=== PATIENT | male | born 1945 | race Caucasian/White ===

== ENCOUNTER → 2021-04-15 11:43 | Outpatient (BNVA) | payer MEDICARE, SELFPAY | PROVIDERS: Visit Provider Urology | DX: C61 Malignant neoplasm of prostate (principal); N40.1 Benign prostatic hyperplasia with lower urinary tract symptoms; N13.8 Other obstructive and reflux uropathy; R35.1 Nocturia; R39.12 Poor urinary stream; R97.20 Elevated prostate specific antigen [PSA]; Z85.830 Personal history of malignant neoplasm of bone; Z94.81 Bone marrow transplant status | CPT/HCPCS: 51798; 99212 ==

== ENCOUNTER 2021-06-07 09:04 | Day surgery (SDC) | payer MEDICARE, SELFPAY ==
--- NOTE | 2021-06-06 14:34 | P.CONAN_ITS ---
Documented by User: Soco Miller NP 06/06/21 14:43 HPI - Anesthesia Eval Consult details Narrative: 75yo M for ?Upper Endoscopy and Colonoscopy PMFSH Active Problems Active Problems: All Active Problems (Updated 04/15/21 @ 12:35 by Jeancarlos Garcia MD) BPH w urinary obs/LUTS (Acute) Prostate cancer (Acute) Past Medical History Medical History BPH w urinary obs/LUTS Graves disease HLD (hyperlipidemia) Multiple myeloma Nocturia Osteopenia Paroxysmal atrial fibrillation Prostate cancer Family History Family History Mother CAD (coronary artery disease) Father Prostate cancer Surgical History Surgical History H/O neck surgery H/O shoulder surgery Hx of spinal surgery Social History Social History Alcohol intake: current Alcohol intake frequency: holidays/special occasions only Alcohol type: wine Patient Tobacco Use Status: Never used Tobacco Use of substances other than those prescribed or required for medical reasons: No Are you DNR?: No Advance Directives: No Advance Directives Information Provided: No Advance Directives on File: No Meds Allergies Allergy/AdvReac Type Severity Reaction Status Date / Time No Known Allergies Allergy Verified 04/15/21 12:01 Home Medications Medication Instructions Recorded Confirmed Last Taken Type cholecalciferol (vitamin D3) 25 25 mcg PO DAILY 04/15/21 Unknown History mcg (1,000 unit) tablet (Vitamin D3) levothyroxine 150 mcg tablet 150 mcg PO DAILY 04/15/21 Unknown History (Synthroid) lifitegrast 5 % eye drops in a drp OPHTHALMIC (EYE) BID ea 04/15/21 Unknown History dropperette (Xiidra) Exam Exam Date and Time: June 06, 2021 1434 Assessment and Plan Assessment Anesthesia Assessment: Chart Reviewed Documented by User: Celeste Espino MD 06/07/21 09:32 [facility] Past Medical History Medical History BPH w urinary obs/LUTS Graves disease HLD (hyperlipidemia) Multiple myeloma Nocturia Osteopenia Paroxysmal atrial fibrillation Prostate cancer Family History Family History Mother CAD (coronary artery disease) Father Prostate cancer Surgical History Surgical History H/O neck surgery H/O shoulder surgery Hx of spinal surgery History of Problems with Anesthesia: No Social History Social History Alcohol intake: current Alcohol intake frequency: holidays/special occasions only Alcohol type: wine Patient Tobacco Use Status: Never used Tobacco Use of substances other than those prescribed or required for medical reasons: No Are you DNR?: No Advance Directives: No Advance Directives Information Provided: No Advance Directives on File: No Meds Allergies Allergy/AdvReac Type Severity Reaction Status Date / Time No Known Allergies Allergy Verified 04/15/21 12:01 Home Medications Medication Instructions Recorded Confirmed Last Taken Type cholecalciferol (vitamin D3) 25 25 mcg PO DAILY 04/15/21 Unknown History mcg (1,000 unit) tablet (Vitamin D3) levothyroxine 150 mcg tablet 150 mcg PO DAILY 04/15/21 Unknown History (Synthroid) lifitegrast 5 % eye drops in a drp OPHTHALMIC (EYE) BID ea 04/15/21 Unknown History dropperette (Xiidra) Exam Airway Mallampati Class: II TM Dist: >3cm Neck ROM: Full Loose/Missing/Broken Teeth: No Heart: RRR Lungs: CTA Assessment and Plan Assessment Anesthesia Assessment: Anesthesia Plan Discussed Final Anesthetic Review History of Problems with Anesthesia: No NPO: Yes ASA Class: III Final Preanesthetic Review: Meds/Allgs Chart Reviewed, Consent Obtained/Reviewed and Anes Risks/Benef Reviewed Patient Risk: Intermediate Procedure Risk: Intermediate Anesthetic Plan Anesthetic Plan: MAC: Disposition: Standard PACU
--- NOTE | 2021-06-07 08:39 | MHC.SHP ---
Pre-Procedural Eval Section A Date of Service: 06/07/21 The patient is an INPATIENT: No Changes since office visit: No Cold of Flu in the past 2 weeks, No New Medical Problems, No Changes in Medication and No Patient answered all questions The History & Physical has been completed within 30 days and I have reviewed it.: Yes Section B Chief Complaint: dysphasia,diarrhea Allergies: Allergies Allergy/AdvReac Type Severity Reaction Status Date / Time No Known Allergies Allergy Verified 04/15/21 12:01 Plan I have reviewed the history and physical and performed a pertinent physical examination on my patient. No changes have occurred unless specified.
[2021-06-07 09:13] VITALS: BMI 23.1
[2021-06-07 09:23] VITALS: BP 128/69; PULSE 65; RESP 16; TEMP 36.2; O2SAT 98
[2021-06-07] MEDS: Lactated Ringers 1,000 ML 100 ML IVCONT (09:36)
[2021-06-07 10:13] VITALS: BP 93/68; PULSE 60; RESP 16; TEMP 36.6; O2SAT 99
--- NOTE | 2021-06-07 10:17 | P.BOP_ITS ---
Brief Operative Note Date of Service: 06/07/21 Pre-op diagnosis: dysphagia, diarrhea Post-op diagnosis: same (gastritis, duodenitis, diverticulosis, cecal avm) Procedure: EGD/COLON Surgeon: Sebastian Bojorquez Anesthesia: MAC Was an Clod Puller used for this Procedure?: No Estimated blood loss (mL): 2 Pathology: other (bxs antrum,egj, ti, sigmoid) Condition: stable Disposition: PACU
[2021-06-07 10:27] VITALS: BP 113/72; PULSE 63; RESP 16; TEMP 36.1; O2SAT 100
--- NOTE | 2021-06-07 10:48 | OP_ITS ---
SURGEON: Sebastian Bojorquez MD INDICATIONS: 1. Dysphagia. 2. Diarrhea and colorectal cancer screening. PREOPERATIVE DIAGNOSIS: POSTOPERATIVE DIAGNOSIS: PROCEDURE PERFORMED: 1. Upper endoscopy with biopsy. 2. Colonoscopy to the terminal ileum with biopsy. ESTIMATED BLOOD LOSS: COMPLICATIONS: ANESTHESIA: Medications, monitored anesthesia care. ASSISTANTS: SPECIMENS: DESCRIPTION OF PROCEDURE: History and physical performed. The risks and benefits of the procedure were explained to the patient, and informed consent was obtained. The patient was placed in left lateral decubitus position. The Olympus video gastroscope was introduced into the esophagus, stomach, and duodenum. Examination was performed. The scope was removed. He was repositioned for colonoscopy. A digital rectal exam was performed and was found to be normal. The Olympus pediatric video colonoscope was introduced into the rectum and advanced to the cecum without difficulty. The cecum was identified by transillumination, palpation, and identification of ileocecal valve. Examination was performed, and the scope was removed. He tolerated both procedures well and was taken to recovery area in stable condition. FINDINGS: UPPER ENDOSCOPY: Esophagus: The esophagus was normal. There was a small sliding hiatal hernia. There was no esophagitis. Biopsies were obtained from the EG junction. Stomach: The stomach showed no evidence of masses or ulcers. There were some erosions in the distal antrum in the pre-pyloric area. Antral biopsies were obtained to evaluate for H pylori. Duodenum: There was some mild duodenitis involving the bulb. COLONOSCOPY: The terminal ileum was examined and appeared normal. This was biopsied. The visualized colonic mucosa was within normal limits without evidence of masses or ulcers. No polyps were identified. There was mild sigmoid diverticulosis. In the cecum, was a 5 mm nonbleeding AVM that was not treated. Retroflexed examination showed moderate-sized internal hemorrhoids. The quality of the prep was good with some stool coating the mucosa, which limited the sensitivity examination, mainly in the sigmoid. This was washed and suctioned, however, the exam was determined to be adequate. IMPRESSION: 1. Gastritis. 2. Duodenitis. 3. Diverticulosis. 4. Cecal nonbleeding AVM. RECOMMENDATION: Follow up the biopsy results. Routine screening colonoscopy not recommended based on age. MD QUINCY Deluna/CONSUELOL / [id number] JAK
== END 2021-06-07 11:08 | disposition home or self-care (01) ==
PROVIDERS: PCP Internal Medicine; Visit Provider Internal Medicine Gastroenterology
PROC: (CPT 45380; principal; 2021-06-07 10:00)
DX: Z12.11 Encounter for screening for malignant neoplasm of colon (principal); K57.30 Diverticulosis of large intestine without perforation or abscess without bleeding; K64.8 Other hemorrhoids; K55.20 Angiodysplasia of colon without hemorrhage; K58.0 Irritable bowel syndrome with diarrhea; N40.0 Benign prostatic hyperplasia without lower urinary tract symptoms; R13.19 Other dysphagia; K29.60 Other gastritis without bleeding; K29.80 Duodenitis without bleeding; K44.9 Diaphragmatic hernia without obstruction or gangrene; C90.00 Multiple myeloma not having achieved remission; E78.00 Pure hypercholesterolemia, unspecified; M85.80 Other specified disorders of bone density and structure, unspecified site; E05.00 Thyrotoxicosis with diffuse goiter without thyrotoxic crisis or storm; I48.0 Paroxysmal atrial fibrillation; Z79.899 Other long term (current) drug therapy
CPT/HCPCS: 45380; 43239; 88305; 88342

== ENCOUNTER → 2022-01-13 11:12 | Outpatient (BNVA) | payer MEDICARE, SELFPAY | PROVIDERS: PCP Internal Medicine; Visit Provider Urology | DX: N40.1 Benign prostatic hyperplasia with lower urinary tract symptoms (principal); N13.8 Other obstructive and reflux uropathy; C61 Malignant neoplasm of prostate | CPT/HCPCS: 51798; 99212 ==

== ENCOUNTER → 2022-07-07 11:13 | Outpatient (BNVA) | payer MEDICARE, SELFPAY | PROVIDERS: PCP Internal Medicine; Visit Provider Urology | DX: N40.1 Benign prostatic hyperplasia with lower urinary tract symptoms (principal); N13.8 Other obstructive and reflux uropathy; C61 Malignant neoplasm of prostate | CPT/HCPCS: 51798; 99212 ==

== ENCOUNTER → 2022-10-31 14:24 | Outpatient (BNVA) | payer MEDICARE, SELFPAY | PROVIDERS: PCP Internal Medicine; Visit Provider Urology | DX: C61 Malignant neoplasm of prostate (principal); N40.1 Benign prostatic hyperplasia with lower urinary tract symptoms; N13.8 Other obstructive and reflux uropathy; R35.1 Nocturia; R39.12 Poor urinary stream; Z85.79 Personal history of other malignant neoplasms of lymphoid, hematopoietic and related tissues; Z94.81 Bone marrow transplant status | CPT/HCPCS: 99212 ==

== ENCOUNTER 2023-05-08 09:42 | Outpatient (AMB) | payer MEDICARE, SELFPAY ==
--- NOTE | 2023-05-08 09:46 | MHC.OFFVIS ---
Intake Intake Visit Reasons: follow up/PSA(set) Intake Note: Patient is Present for Follow Up PSA Urology Medication: None Antibiotic Allergies:None Blood Thinners:None PVR: 0ml Allergies No Known Allergies Allergy (Verified 05/08/23 09:50) HPI HPI Comments History of Present Illness Details Leandro is a pleasant male. He is a patient of . 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 PFSH Medical History Paroxysmal atrial fibrillation Graves disease Osteopenia Multiple myeloma HLD (hyperlipidemia) BPH w urinary obs/LUTS Prostate cancer Nocturia Surgical History H/O neck surgery Hx of spinal surgery H/O shoulder surgery Family History Mother CAD (coronary artery disease) Father Prostate cancer Alcohol intake: current Alcohol intake frequency: holidays/special occasions only Alcohol type: wine Patient Tobacco Use Status: Never used Tobacco Review of Systems Const Denies chills and Denies fever(s) Card Reports no additional complaints and Denies syncope Resp Denies cough GI Denies abdominal pain and Denies heartburn Reports as per HPI and Denies change in libido Neuro Denies syncope Psych Denies change in libido Endo Denies change in libido Physical Exam Const General: cooperative, healthy appearing, comfortable and no acute distress Orientation/consciousness: patient oriented x3 HEENT Face and sinus: Yes normal facial exam Mouth: moist mucous membranes Neck Neck: Yes normal visual inspection, Yes full ROM and Yes trachea midline Chest Chest palpation & inspection: normal inspection of the chest Resp Effort & Inspection: normal respiratory effort, able to speak in complete sentences and no respiratory distress GI Inspection: Yes normal to inspection Back/Spine/Pelvis Cervical Spine: normal cervical lordosis Thoracic/Lumbar Spine: thoracic and lumbar spine normal to inspection Skin General skin exam: no rashes or lesions noted Neuro General: patient oriented x3, gait normal, tone normal and moves all extremities Extrem General: Yes normal to inspection and Yes capillary refill normal Office Procedures Post Void Residual Post Residual Void Post Void Residual (PVR): 0 [id number] Void Residual by ultrasound Results AMB Urinalysis, Automated UA Leukoctes 0 Rahul/uL Last Edit by Ale Lombardi [facility] on 05/08/23 10:02 UA Nitrite Negative Last Edit by Ale Lombardi [facility] on 05/08/23 10:02 UA Urobilinogen 0.2 mg/dL Last Edit by Ale Lombardi [facility] on 05/08/23 10:02 UA Protein 0 mg/dL Last Edit by Ale Lombardi [facility] on 05/08/23 10:02 UA pH 5.0 Last Edit by Ale Lombardi [facility] on 05/08/23 10:02 UA Blood 0 Anthony/uL Last Edit by Ale Lombardi [facility] on 05/08/23 10:02 UA Specific [place] 1.015 Last Edit by Ale Lombardi [facility] on 05/08/23 10:02 UA Ketone Negative Last Edit by Ale Lombardi [facility] on 05/08/23 10:02 UA Bilirubin 0 mg/dL Last Edit by Ale Lombardi [facility] on 05/08/23 10:02 UA Glucose 0 mg/dL Last Edit by Ale Lombardi [facility] on 05/08/23 10:02 Assessment & Plan Assessment & Plan (1) Prostate cancer: Code(s): C61 - Malignant neoplasm of prostate (2) BPH w urinary obs/LUTS: Code(s): N40.1 - Benign prostatic hyperplasia with lower urinary tract symptoms; N13.8 - Other obstructive and reflux uropathy Plan Six month follow-up PSA Orders: Orders AMB Urinalysis Automated Today N13.8 - Other obstructive and reflux uropathy, N40.1 - Benign prostatic hyperplasia with lower urinary tract symptoms, Z13.9 - Encounter for screening, unspecified AMB Post Void Residual by ultrasound Today N13.8 - Other obstructive and reflux uropathy, N40.1 - Benign prostatic hyperplasia with lower urinary tract symptoms PSA,Total (Free>4and<10) 6 Months C61 - Malignant neoplasm of prostate Patient Instructions: Imaging studies, laboratory and physical exam results were discussed and reviewed in detail. No major barriers to patient understanding were identified. An opportunity to ask questions regarding the treatment plan was provided. All questions were answered. The patient expressed understanding and agreement with the above treatment plan. The patient is aware they should contact our office by phone for worsening of their current condition or the appearance of new urologic symptoms. Compliance is encouraged with any medications and followup testing that is ordered. It is a privilege to participate in the urologic care of your patient. If you have any questions or concerns regarding treatment for the above conditions, or other urologic issues, please do not hesitate to contact me. The office telephone contact is [phone]. This note is constructed using voice recognition software. While every effort has been made to ensure accuracy tile layer errors may have been included. Yours sincerely, Dr Jeancarlos Garcia MD, [facility] - Urology Providers of Expert, Compassionate Care for the Genitourinary System Coding Level of Care Code Est Pt Level 3 (36864) Diagnoses Prostate cancer C61 BPH w urinary obs/LUTS N40.1; N13.8 CPT Codes Post Residual Void - PVR CPT Code: 35626-Sgoa Void Residual by ultrasound ([id number])
== END 2023-05-08 10:16 | disposition home or self-care (01) ==
PROVIDERS: Visit Provider Urology
DX: C61 Malignant neoplasm of prostate (principal); N40.1 Benign prostatic hyperplasia with lower urinary tract symptoms; N13.8 Other obstructive and reflux uropathy; Z13.9 Encounter for screening, unspecified
CPT/HCPCS: 99213

== ENCOUNTER → 2023-05-08 09:42 | Outpatient (BNVA) | payer MEDICARE, SELFPAY | PROVIDERS: Visit Provider Urology | DX: C61 Malignant neoplasm of prostate (principal); N40.1 Benign prostatic hyperplasia with lower urinary tract symptoms; N13.8 Other obstructive and reflux uropathy | CPT/HCPCS: 51798; 81003; 99212 ==

== ENCOUNTER 2023-11-07 09:46 | Outpatient (AMB) | payer MEDICARE, SELFPAY ==
--- NOTE | 2023-11-07 09:48 | A.OFFVIS_ITS ---
Intake Visit Reasons: 6m/PSA(set) Intake Note: Patient is Present for Follow Up PSA Urology Medication: Tamsulosin Antibiotic Allergies:None Blood Thinners:None PVR: 0ml [employer] Required: No Accompanied by: Self / Same As Patient Allergies No Known Allergies Allergy (Verified 11/07/23 09:49) HPI Comments Details: Leandro is a pleasant male. He is a patient of . 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 He did ask about tadalafil JONELLE 2+ prostate soft 2 month follow-up tele med check Prostate cancer low-grade [address] Morin Initial PSA 3.5 Biopsy at diagnosis 2010 1 core of 12 5% [place] 3 + 3 Repeat biopsy 2013 BPH no evidence of cancer Did not tolerate finasteride Followed with surveillance PSA - 04/07 3.7, 01/06 3.8, 10/08 5.0, 05/10 4.3, 10/09 4.1 24% Urine normal Imaging - 10/08 MRI 0.7 cc left anterior peripheral lesion - PI-RADS 4 on diffusion, 65 cc volume - subclinical disease Lower urinary tract symptoms Longstanding Had been responsive to 0.4 mg tamsulosin Noticed increasing nocturia and weakness of stream Continues with this 0.8 mg tamsulosin May benefit from GreenLight laser procedure 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 Medical History Paroxysmal atrial fibrillation Graves disease Osteopenia Multiple myeloma HLD (hyperlipidemia) BPH w urinary obs/LUTS Prostate cancer Nocturia Surgical History H/O neck surgery Hx of spinal surgery H/O shoulder surgery Family History Mother CAD (coronary artery disease) Father Prostate cancer Social History Alcohol intake: current Alcohol intake frequency: holidays/special occasions only Alcohol type: wine Patient Tobacco Use Status: Never used Tobacco Review of Systems Const Denies chills and Denies fever(s) Card Reports no additional complaints and Denies syncope Resp Denies cough GI Denies abdominal pain and Denies heartburn Reports as per HPI and Denies change in libido Neuro Denies syncope Psych Denies change in libido Endo Denies change in libido Physical Exam Const General: cooperative, healthy appearing, comfortable and no acute distress Orientation/consciousness: patient oriented x3 HEENT Face and sinus: Yes normal facial exam Mouth: moist mucous membranes Neck Neck: Yes normal visual inspection, Yes full ROM and Yes trachea midline Chest Chest palpation & inspection: normal inspection of the chest Resp Effort & Inspection: normal respiratory effort, able to speak in complete sentences and no respiratory distress GI Inspection: Yes normal to inspection Rectal Exam - Male: Yes normal sphincter tone and Yes prostate normal Male General Exam: Yes normal external exam Penis: normal penis and circumcised Meatus: meatus normal Scrotum: scrotum normal Testes: Testes normal Back/Spine/Pelvis Cervical Spine: normal cervical lordosis Thoracic/Lumbar Spine: thoracic and lumbar spine normal to inspection Skin General skin exam: no rashes or lesions noted Neuro General: patient oriented x3, gait normal, tone normal and moves all extremities Extrem General: Yes normal to inspection and Yes capillary refill normal Assessment & Plan Assessment & Plan (1) Prostate cancer: Code(s): C61 - Malignant neoplasm of prostate Category: Medical (2) BPH w urinary obs/LUTS: Code(s): N40.1 - Benign prostatic hyperplasia with lower urinary tract symptoms; N13.8 - Other obstructive and reflux uropathy Category: Medical (3) Weak urinary stream: Code(s): R39.12 - Poor urinary stream Category: Medical (4) Nocturia more than twice per night: Code(s): R35.1 - Nocturia Category: Medical Plan Trial alfuzosin Medications: New alfuzosin ER Take before bedtime 10 mg PO BEDTIME 30 tabs 1RF 30 days N13.8 - Other obstructive and reflux uropathy, N40.1 - Benign prostatic hyperplasia with lower urinary tract symptoms, R33.9 - Retention of urine, unspecified Patient Instructions: Imaging studies, laboratory and physical exam results were discussed and reviewed in detail. No major barriers to patient understanding were identified. An opportunity to ask questions regarding the treatment plan was provided. All questions were answered. The patient expressed understanding and agreement with the above treatment plan. The patient is aware they should contact our office by phone for worsening of their current condition or the appearance of new urologic symptoms. Compliance is encouraged with any medications and followup testing that is ordered. It is a privilege to participate in the urologic care of your patient. If you have any questions or concerns regarding treatment for the above conditions, or other urologic issues, please do not hesitate to contact me. The office telephone contact is [phone]. This note is constructed using voice recognition software. While every effort has been made to ensure accuracy pelt shearer errors may have been included. Yours sincerely, Dr Jeancarlos Garcia MD, [facility] - Urology Providers of Expert, Compassionate Care for the Genitourinary System Coding Level of Care Code Est Pt Level 3 (26096) Diagnoses Prostate cancer C61 BPH w urinary obs/LUTS N40.1; N13.8 Weak urinary stream R39.12 Nocturia more than twice per night R35.1
== END 2023-11-07 10:08 | disposition home or self-care (01) ==
PROVIDERS: PCP Internal Medicine; Visit Provider Urology
DX: C61 Malignant neoplasm of prostate (principal); N40.1 Benign prostatic hyperplasia with lower urinary tract symptoms; N13.8 Other obstructive and reflux uropathy; R39.12 Poor urinary stream; R35.1 Nocturia
CPT/HCPCS: 99213

== ENCOUNTER → 2023-11-07 09:46 | Outpatient (BNVA) | payer MEDICARE, SELFPAY | PROVIDERS: PCP Internal Medicine; Visit Provider Urology | DX: C61 Malignant neoplasm of prostate (principal); N40.1 Benign prostatic hyperplasia with lower urinary tract symptoms; N13.8 Other obstructive and reflux uropathy; R39.12 Poor urinary stream; R35.1 Nocturia | CPT/HCPCS: 99212 ==

== ENCOUNTER 2024-01-08 09:45 | Outpatient (AMB) | payer MEDICARE, SELFPAY ==
--- NOTE | 2024-01-08 09:47 | A.OFFVIS_ITS ---
Intake Visit Reasons: 2M Med Review(Alfuzosin) Intake Note: Patient is Present for Telephone Follow Up For Medication Review Urology Med:Alfuzosin Antibiotic Allergy: None Blood Thinner: None Patient has started trial of Alfuzosin. Has been on medication for 30 days , does need a refill. Patient states that since he started medication he has been feeling really weak and tired. He is not sure if this is due to the Alfuzosin but started when he started medication. Patient would like to review symptoms with Dr Garcia before continuing medication Business Team Leader Required: No Allergies No Known Allergies Allergy (Verified 01/08/24 09:57) HPI Comments Details: Leandro is a pleasant male. He is a patient of . 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 PFSH Medical History Paroxysmal atrial fibrillation Graves disease Osteopenia Multiple myeloma HLD (hyperlipidemia) BPH w urinary obs/LUTS Prostate cancer Nocturia Surgical History H/O neck surgery Hx of spinal surgery H/O shoulder surgery Family History Mother CAD (coronary artery disease) Father Prostate cancer Social History Alcohol intake: current Alcohol intake frequency: holidays/special occasions only Alcohol type: wine Patient Tobacco Use Status: Never used Tobacco Review of Systems Const All systems reviewed & are unremarkable except as noted in HPI and below Reports no additional complaints Resp Reports no additional complaints GI Reports no additional complaints Reports as per HPI Musc Reports no additional complaints Physical Exam Telemedicine evaluation Appropriate responses Regular breathing rate and rhythm HEENT Head: Yes normal to inspection Ears: hearing grossly normal bilaterally Eyes General: appearance normal, both eyes and all related structures Neck Neck: Yes normal visual inspection Chest Chest palpation & inspection: normal inspection of the chest Resp Effort & Inspection: normal respiratory effort and able to speak in complete sentences Telehealth Telehealth Location of provider rendering services: practice address Location of patient: address on file Patient Identification confirmed using: Name, : Yes Telehealth method: voice only Patient verbally consented to treatment: Yes Patient verbally consented to billing insurance company: Yes Patient informed of any privacy concerns related to visit: Yes Assessment & Plan Assessment & Plan (1) Prostate cancer: Code(s): C61 - Malignant neoplasm of prostate Category: Medical (2) Weak urinary stream: Code(s): R39.12 - Poor urinary stream Category: Medical (3) Nocturia more than twice per night: Code(s): R35.1 - Nocturia Category: Medical Plan Will continue alfuzosin Orders: Orders Prostate Specific Antigen 6 Months C61 - Malignant neoplasm of prostate Medications: Changed From alfuzosin ER Take before bedtime 10 mg PO BEDTIME 30 days 30 tabs 1RF N13.8 - Other obstructive and reflux uropathy, N40.1 - Benign prostatic hyperplasia with lower urinary tract symptoms, R33.9 - Retention of urine, unspecified To alfuzosin ER Take before bedtime 10 mg PO BEDTIME 90 days 90 tabs 1RF N13.8 - Other obstructive and reflux uropathy, N40.1 - Benign prostatic hyperplasia with lower urinary tract symptoms, R33.9 - Retention of urine, unspecified Patient Instructions: Imaging studies, laboratory and physical exam results were discussed and reviewed in detail. No major barriers to patient understanding were identified. An opportunity to ask questions regarding the treatment plan was provided. All questions were answered. The patient expressed understanding and agreement with the above treatment plan. The patient is aware they should contact our office by phone for worsening of their current condition or the appearance of new urologic symptoms. Compliance is encouraged with any medications and followup testing that is ordered. It is a privilege to participate in the urologic care of your patient. If you have any questions or concerns regarding treatment for the above conditions, or other urologic issues, please do not hesitate to contact me. The office teleph one contact is [phone]. This note is constructed using voice recognition software. While every effort has been made to ensure accuracy pullboat engineer errors may have been included. Yours sincerely, Dr Jeancarlos Garcia MD, [facility] - Urology Providers of Expert, Compassionate Care for the Genitourinary System Coding Level of Care Code Tele Est Pt Level 3 (24879) Diagnoses Prostate cancer C61 Weak urinary stream R39.12 Nocturia more than twice per night R35.1
== END 2024-01-08 10:11 | disposition home or self-care (01) ==
LOC: HO.HUSH 09:45
PROVIDERS: PCP Internal Medicine; Visit Provider Urology
DX: C61 Malignant neoplasm of prostate (principal); R39.12 Poor urinary stream; R35.1 Nocturia
CPT/HCPCS: 99442

== ENCOUNTER → 2024-01-08 09:45 | Outpatient (BNVA) | payer MEDICARE, SELFPAY | PROVIDERS: PCP Internal Medicine; Visit Provider Urology ==

== ENCOUNTER 2024-07-10 11:40 | Outpatient (AMB) | payer MEDICARE, SELFPAY ==
--- NOTE | 2024-07-10 11:42 | A.OFFVIS_ITS ---
Intake Visit Reasons: 6m/PSA(set)Elevated Intake Note: Patient is present for 6M/PSA Urology Medication:ALFUZOSIN Antibiotic Allergy:NONE Blood Thinner:NONE Prep Room Supervisor Required: No Allergies No Known Allergies Allergy (Verified 07/10/24 11:43) HPI Comments Details: Leandro is a pleasant male. He is a patient of . He seen for the following urologic conditions - lower urinary tract symptoms - prostate cancer Six-month follow-up Has been on alfuzosin Feeling run down Has not been recovering from myeloma infusions each month as well as he did in the past PSA 5.2. Known large prostate. Might try dutasteride. Repeat PSA in 4 months JONELLE 2+ prostate soft Prostate cancer low-grade [address] Morin Initial PSA 3.5 Biopsy at diagnosis 2010 1 core of 12 - 5% [place] 3 + 3 Repeat biopsy 2013 BPH no evidence of cancer Did not tolerate finasteride Followed with surveillance PSA - 04/07 3.7, 01/06 3.8, 10/08 5.0, 05/10 4.3, 10/09 4.1 24%, 07/12 5.2 Urine normal Imaging - 10/08 MRI 0.7 cc left anterior peripheral lesion - PI-RADS 4 on diffusion, 65 cc volume - subclinical disease Lower urinary tract symptoms Longstanding Had been responsive to 0.4 mg tamsulosin Noticed increasing nocturia and weakness of stream Continues with this 0.8 mg tamsulosin May benefit from GreenLight laser procedure 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 PFSH Medical History Paroxysmal atrial fibrillation Graves disease Osteopenia Multiple myeloma HLD (hyperlipidemia) BPH w urinary obs/LUTS Prostate cancer Nocturia Surgical History H/O neck surgery Hx of spinal surgery H/O shoulder surgery Family History Mother CAD (coronary artery disease) Father Prostate cancer Social History Alcohol intake: current Alcohol intake frequency: holidays/special occasions only Alcohol type: wine Patient Tobacco Use Status: Never used Tobacco Review of Systems Const Denies chills and Denies fever(s) Card Reports no additional complaints and Denies syncope Resp Denies cough GI Denies abdominal pain and Denies heartburn Reports as per HPI and Denies change in libido Neuro Denies syncope Psych Denies change in libido Endo Denies change in libido Physical Exam Const General: cooperative, healthy appearing, comfortable and no acute distress Orientation/consciousness: patient oriented x3 HEENT Face and sinus: Yes normal facial exam Mouth: moist mucous membranes Neck Neck: Yes normal visual inspection, Yes full ROM and Yes trachea midline Chest Chest palpation & inspection: normal inspection of the chest Resp Effort & Inspection: normal respiratory effort, able to speak in complete sentences and no respiratory distress GI Inspection: Yes normal to inspection Back/Spine/Pelvis Cervical Spine: normal cervical lordosis Thoracic/Lumbar Spine: thoracic and lumbar spine normal to inspection Skin General skin exam: no rashes or lesions noted Neuro General: patient oriented x3, gait normal, tone normal and moves all extremities Extrem General: Yes normal to inspection and Yes capillary refill normal Assessment & Plan Assessment & Plan (1) Nocturia more than twice per night: Code(s): R35.1 - Nocturia Category: Medical (2) Prostate cancer: Code(s): C61 - Malignant neoplasm of prostate Category: Medical Plan Four month follow-up Orders: Orders AMB Urinalysis Automated Today Z13.9 - Encounter for screening, unspecified PSA,Total (Free>4and<10) 4 Months C61 - Malignant neoplasm of prostate Patient Instructions: Imaging studies, laboratory and physical exam results were discussed and reviewed in detail. No major barriers to patient understanding were identified. An opportunity to ask questions regarding the treatment plan was provided. All questions were answered. The patient expressed understanding and agreement with the above treatment plan. The patient is aware they should contact our office by phone for worsening of their current condition or the appearance of new urologic symptoms. Compliance is encouraged with any medications and followup testing that is ordered. It is a privilege to participate in the urologic care of your patient. If you have any questions or concerns regarding treatment for the above conditions, or other urologic issues, please do not hesitate to contact me. The office telephone contact is [phone]. This note is constructed using voice recognition software. While every effort has been made to ensure accuracy seed pelleter errors may have been included. Yours sincerely, Dr Jeancarlos Garcia MD, [facility] - Urology Providers of Expert, Compassionate Care for the Genitourinary System Coding Level of Care Code Est Pt Level 3 (71015) Diagnoses Nocturia more than twice per night R35.1 Prostate cancer C61
--- OUTSIDE RECORDS SUMMARY | 2024-07-10 14:06 | XMS_ITS | Continuity of Care Document ---
Author Organization [facility] [place] Address [address] [place] [address]- Care Team Providers Care Saw Man Name Role Phone Peggy Eastman MD Primary Care Physician Encounter [facility] Date(s): 06/09/24 - 07/09/24 [facility] [place] [address], [place] [address] Encounter Type: Triage Allergies, Adverse Reactions, Alerts No Known Allergies Immunizations Given and Recorded Vaccine Date Status Refusal Reason tetanus/diphtheria/pertussis, acel(Tdap) 12/18/16 Given Measles/Mumps/Rubella Virus Vaccine 01/12/12 Given haemophilus b conjugate (PRP-T) vaccine 01/12/12 G iven diphtheria/tetanus/pertussis, acel(DTaP) 01/12/12 Given Medications acetaminophen 325 mg oral tablet 650 mg, 2, tablet, By Mouth, 4 times a day, PRN, # 16 tablet, Refills 0, Tot. Refills 0, Maintenance, as needed for pain, 12/24/20 8:31:00 PM EDT, Route to Pharmacy Electronically, [facility]/pharmacy #[id number], Partial fill upon patient request if the prescription is for a schedule II opioid drug., 174, cm, 12/24/20 19:42:00 EDT, Height, 72, kg, 12/24/20 19:42:00 EDT, Dry Weight Start Date: 12/24/20 Status: Ordered Quantity: 16.0 Unit: tablet Repeat number: 1 Jessica 24 Hour Allergy = 180 mg, By Mouth, Daily, 0 Refills, Maintenance, 8/8/14 9:31:04 AM EDT Start Date: 01/23/14 Status: Ordered Repeat number: 1 atorvastatin 10 mg oral tablet 1 tablet = 10 mg, By Mouth, Daily, # 30 tablet, 0 Refills, Maintenance, 10/04/21 2:06:00 PM EDT, Partial fill upon patient request if the prescription is for a schedule II opioid drug. Start Date: 10/04/21 Status: Ordered Quantity: 30.0 Unit: tablet Repeat number: 1 CoQ10 By Mouth, Daily, 0 Refills, Maintenance, 11/04/21 9:32:00 AM EDT, Partial fill upon patient request if the prescription is for a schedule II opioid drug. Start Date: 11/04/21 Status: Ordered Repeat number: 1 Darzalex 20 mg/mL intravenous solution = 1,120 mg, IV Infusion, 0 Refills, Maintenance, 10/04/21 2:08:00 PM EDT, Partial fill upon patient request if the prescription is for a schedule II opioid drug. Start Date: 10/04/21 Status: Ordered Repeat number: 1 dexamethasone 4 mg oral tablet See Instructions, 5 tabs po weekly, # 60 tablet, 4 Refills, Maintenance, 08/22/19 11:21:00 PM EST, Tablet, [facility]/pharmacy #[id number], 177, cm, 08/01/19 8:52:00 EST, Height, 71.8, kg, 08/01/19 8:52:00 EST, DryWeight Start Date: 08/22/19 Status: Ordered Quantity: 60.0 Unit: tablet Repeat number: 5 sulfamethoxazole-trimethoprim 800 mg-160 mg oral tablet See Instructions, TAKE 1 TABLET BY MOUTH EVERY SUNDAY, SUNDAY AND SUNDAY, # 39 tablet, 4 Refills, Maintenance, 02/12/23 10:23:00 AM EDT, [facility]/pharmacy #[id number], 90, TAKE 1 TABLET BY MOUTH EVERY SUNDAY,SUNDAY AND SUNDAY, 171.1, cm, 02/01/23 10:27:00 EDT, Height, 70.7, kg, 01/04/23 9:36:00 EDT, DryWeight Start Date: 02/12/23 Status: Ordered Quantity: 39.0 Unit: tablet Repeat number: 5 Synthroid 0.15 mg oral tablet See Instructions, 1 tablet By Mouth 5 days of the week, # 65 tablet, 3 Refills, Maintenance, 11/28/19 2:53:00 PM EDT, [facility], 177, cm, 11/28/19 10:33:00 EDT, Height, 71.8, kg, 08/01/19 8:52:00 EST, Dry Weight Start Date: 11/28/19 Status: Ordered Quantity: 65.0 Unit: tablet Repeat number: 4 tamsulosin 0.4 mg oral capsule 1 capsule = 0.4 mg, By Mouth, Daily, 0 Refills, Maintenance, 03/15/14 8:43:18 PM EDT Start Date: 03/15/14 Status: Ordered Repeat number: 1 Valtrex 500 mg oral tablet 1 tablet = 500 mg, By Mouth, Daily, 0 Refills, Maintenance, 03/15/14 8:44:32 PM EDT Start Date: 03/15/14 Status: Ordered Repeat number: 1 Velcade 3.5 mg injection = 1.3 mg/m2, IV Infusion, 0 Refills, Maintenance, 10/04/21 2:08:00 PM EDT, Partial fill upon patientrequest if the prescription is for a schedule II opioid drug. 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 Cardiology MD Member Role: Lifetime Consulting Physician Address: [address] [place] [address] [address] Telecom: Name: Na Hall RN Position: [facility] Onco RN Member Role: Primary Care Nurse Name: Alice Desai RN Position: [facility] Onco RN Member Role: Primary Care Nurse Name: Chelsea Jang RN Position: [facility] Onco RN Member Role: Primary Care Nurse Name: Alda Rodriguez RN Position: [facility] Onco RN Member Role: Primary Care Nurse Name: Mindy Stovall RN Position: [facility] Office Staff Member Role: Primary Care Nurse Name: Linette Winters RN Position: [facility] Onco RN Member Role: Primary Care Nurse Name: Peggy Eastman MD Position: [facility] Outreach Member Role: PCP Address: [address] [place] [address] [place] [address]- Telecom: Name: Selena Abarca RN, I Position: [facility] RN Member Role: Primary Care Nurse Care Team Related Persons Name: MELISSA AYALA Name: MIKE PAPPAS Name: CLIVE PAPPAS Name: NOT, GIVEN Insurance Providers Guarantor name: ROEL BLEVINS [facility] Plan Information #: 1 Payer: NA Member Number: NA Policy Number: NA Group Number: NA
--- OUTSIDE RECORDS SUMMARY | 2024-07-10 14:07 | XMS_ITS | Encounter Summary ---
Author Organization [facility] Address [phone] [facility] [place] [address] Care Team Providers Care Private Secretary Name Role Phone Peggy Eastman MD Primary Care Provider [phone] Leandro Denis MD Unavailable [phone] Jeffrey Tran MD Unavailable [phone] Encounter Details Date Type Department Care Team (Late Contact Info) Description 12/30/2018 Procedure Pass BWF Periop 1st floor [address] [place] [address] Social History Tobacco Use Types Packs/Day Years Used Date Smoking Tobacco: Never Smokeless Tobacco: Never Alcohol Use Standard Drinks/Week Comments Yes 7 (1 standard drink = 0.6 oz pur e alcohol) Sex and Gender Information Value Date Recorded Sex Assigned at Not on file Gender Identity Not on file Sexual Orientation Not on file documented as of this encounter Plan of Treatment Upcoming Encounters Date Type Department Care Team (Late Contact Info) Description 01/21/2025 11:10 AM EDT Blood Draw Laboratory Services, [facility] [address] [place] [address] Juancho Gilliam MD [address] [place] [address] [email or web address] 01/21/2025 12:00 PM EDT Office Visit [facility] for Multiple Myeloma, Division of Hematologic Oncology, [facility] [address] [place] [address] Juancho Gilliam MD [address] [place] [id number] [email or web address] documented as of this encounter Visit Diagnoses Not on filedocumented in this encounter Additional Health Concerns Assessment Noted Time PHQ-2 Depression Total Score: 0 05/13/20 11:40 AM EST documented as of this encounter Care Teams Private Secretary Relationship Specialty Start Date End Date Peggy Eastman MD [address] [place] [phone] PCP - General 10/23/14 Leandro Denis MD [address] [place] [phone] [email or web address] [email or web address] 01/27/15 Jeffrey Tran MD [address] [place] [phone] Fermenter Endocrinology 03/20/18 documented as of this encounter Additional Source Comments The information contained in this document represents components of the legal health record. It is not the complete legal health record.[facility]
--- OUTSIDE RECORDS SUMMARY | 2024-07-10 14:07 | XMS_ITS | Encounter Summary ---
Author Organization [facility] Address [phone] [facility] [place] [address] Care Team Providers Care Sleep Manager Name Role Phone Peggy Eastman MD Primary Care Provider [phone] Leandro Denis MD Unavailable [phone] Jeffrey Tran MD Unavailable [phone] Encounter Details Date Type Department Care Team (Late Contact Info) Description 02/26/2018 Procedure Pass BWF Periop 1st floor [address] [place] [address] Social History Tobacco Use Types Packs/Day Years [...] 11:10 AM EDT Blood Draw Laboratory Services, [facility] [address] [place] [address] Juancho Gilliam MD [address] [place] [address] [email or web address] 01/21/2025 12:00 PM EDT Office Visit [facility] for Multiple Myeloma, Division of Hematologic Oncology, [facility] [address] [place] [address] Juancho Gilliam MD [address] [place] [id number] [email or web address] documented as of this encounter Visit Diagnoses Not on filedocumented in this encounter Care Teams Sleep Manager Relationship Specialty Start Date End Date Peggy Eastman MD [address] [place] [id number] PCP - General 10/23/14 Leandro Denis MD [address] [place] [phone] [email or web address] [email or web address] 01/27/15 Jeffrey Tran MD [address] [place] [phone] Supply Specialist Endocrinology 03/20/18 documented as of this encounter Additional Source Comments The information contained in this document represents components of the legal health record. It is not the complete legal health record.[facility]
--- OUTSIDE RECORDS SUMMARY | 2024-07-10 14:07 | XMS_ITS | Clinical Summary ---
Author Organization [facility] Address [address] [facility] [address] [place] [address] Care Team Providers Care Optics Manufacturing Technician Name Role Phone Peggy Eastman MD Primary Care Provider [phone] Allergies Active Allergy Reactions Criticality Noted Date Comments Sulfa (Sulfonamide Antibiotics) 10/16 Medications pomalidomide (POMALYST) 4 mg cap Take by mouth. Active levothyroxine (SYNTHROID, LEVOTHROID) 150 MCG tablet Take 150 mcg by mouth daily. Active tamsulosin (FLOMAX) 0.4 mg cp24 Take 0.4 mg by mouth daily. Active Social History Tobacco Use Types Packs/Day Years Used Date Smoking Tobacco: Never Smokeless Tobacco: Never Sex and Gender Information Value Date Recorded Sex Assigned at Not on file Legal Sex Male 12:56 PM EDT Gender Identity Not on file Sexual Orientation Not on file Last Filed Vital Signs Vital Sign Reading Time Taken Comments Blood Pressure 112/72 11/17/2017 10:35 AM EDT Pulse 56 11/17/2017 10:35 AM EDT Temperature 36.2 ??C (97.2 ??F) 11/17/2017 10:35 AM E DT Respiratory Rate 12 11/17/2017 10:35 AM EDT Oxygen Saturation 97% 11/17/2017 10:35 AM EDT Inhaled Oxygen Concentration - - Weight 70.3 kg (155 lb) 11/17/2017 10:35 AM EDT Height 175.3 cm (5' 9 ) 11/17/2017 10:35 AM EDT Body Mass Index 22.89 11/17/2017 10:35 AM EDT Plan of Treatment Health Maintenance Due Date Last Done Comments Depression: Screening Annual ly using PHQ-2/9 in Adults 18 yrs or above (or HM Modifier)([facility]) 1962 Hepatitis C Virus Infection in Adolescents and Adults: Screening (or Modifier) ([facility]) 1962 SDOH Screening Reminder: Suzy garcia for all adults ([facility]) 1962 Tobacco Smoking Cessation: i n Adults excluding Women: Behavioral and Pharmacotherapy Interventions ([facility]) 1962 DTaP/Tdap/Td Vaccines ([facility]) (1 - Tdap) 1963 Lipid Screening: Every 5 yrs for Men aged 35+ (or HM Modifier) ([facility]) 1980 Zoster/Shingles Vaccine Seri es Screening: Adults aged 18+ yrs (or HM Modifiers)([facility]) (1 of 2) 1994 RSV Vaccines (1 - 1-dose 60+ series) 2004 Pneumococcal Vaccination Scr eening: Patients 65+ yrs of age ([facility]) (1 of 1 - PCV) 2009 02/22/2011, 12/21/2010 Flu Vaccination: Ages 65+: Y early High Dose Recommended (or Modifier)([facility]) 01/17/2024 COVID-19 Vaccine Screening: Initial Series and Booster Status ([facility]) (2023- season) 2024 Medical Devices Not on file Insurance MEDICARE Care Teams Optics Manufacturing Technician Relationship Specialty Start Date End Date Peggy Eastman MD PCP - Daycare Worker 10/27/17
--- OUTSIDE RECORDS SUMMARY | 2024-07-10 14:07 | XMS_ITS | Clinical Summary ---
Author Organization [facility] Address [phone] [address] [place] [address] Care Team Providers Care Turntable Engineer Name Role Phone Peggy Eastman MD Primary Care Provider [phone] Leandro Denis MD Unavailable [phone] Jeffrey Tran MD Unavailable [phone] Allergies Active Allergy Reactions Criticality Noted Date Comments Sulfa (Sulfonamide Antibiotics) Rash 06/2010 Medications Medication Sig Dispensed Refills Start Date End Date Status fexofenadine (MARCIAL) 180 MG tablet Take 180 mg by mouth daily. 03/17/2010 Active valACYclovir (VALTREX) 500 MG tablet Take 500 mg by mouth daily. 05/05/2010 Active cholecalciferol (VITAMIN D3) 1,000 unit tablet Take 1,000 Units by mouth daily. Active levothyroxine (SYNTHROID, LEVOTHROID) 150 MCG tablet Take 150 mcg by mouth 5 (five) times a week. Takes every day but Sunday and Active traZODone (DESYREL) 50 MG tablet Take 50 mg by mouth nightly as needed. Active atorvastatin (LIPITOR) 10 MG tablet Take 10 mg by mouth daily. 11/17/2021 Active tiZANidine (ZANAFLEX) 6 MG capsule TAKE 1 CAPSULE BY MOUTH THREE TIMES A DAY NEEDED FOR 10 DAYS 10/19/2022 Active tamsulosin (FLOMAX) 0.4 mg Cap Take 0.8 mg by mouth nightly at bedtime. 11/09/2022 Active sulfamethoxazole-trim ethoprim (BACTRIM DS) 800-160 mg per tablet Take 1 tablet by mouth as directed. MWF 11/13/2022 Active doxycycline hyclate (DORYX) 100 MG tablet Take 100 mg by mouth daily. 01/23/2023 Active ezetimibe (ZETIA) 10 mg tablet Take 10 mg by mouth daily. 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 Abnormal testosterone 03/22/2010 Overview (08/08/2014): Abnormal testosterone Male hypogonadism 03/22/2010 Overview (08/08/2014): Hypogonadism Genital herpes simplex 03/22/2010 Overview (01/27/2015): Genital herpes simplex Gastroesophageal reflux disease 03/22/2010 Overview (01/27/2015): Gastroesophageal reflux disease Spinal stenosis Rotator cuff injury Overview (12/23/2018): left s/p recent repair PAF (paroxysmal atrial fibrillation) Overview (12/23/2018): atrial fib when thyroid levels have been abnormal Hypothyroidism Overview (12/23/2018): taking synthroid 150 mcg four times a week and 137 mcg three days a week Hearing loss Overview (12/23/2018): wears hearing aides Environmental allergies Prostate cancer Overview (12/23/2018): active surveillence Immunizations Name Administration Dates Next Due DTaP, unspecified formulation 02/22/2011, 011 Hep A-Hep B 06/30/2011 Hepatitis A, Unspecified 12/21/2010 Hepatitis B, unspecified formulation 02/22/2011, 12/21/2010,12/21/2010 Hib, unspecified formulation 02/22/2011,12/22/19 11 Pneumococcal conjugate PCV13 02/22/2011,12/22/19 11 Pneumococcal polysaccharide PPSV23 01/22/2010(De ferred: Other) Polio, Unspecified Formulation 02/22/2011,2010 Family History Medical History Relation Comments Lung disease Brother Prostate cancer Father Heart disease Mother Thyroid disease Sister Relation Status Comments Brother Alive Father (Age 78) Mother (Age 93) Sister Alive Social History Tobacco Use Types Packs/Day Years Used Date Smoking Tobacco: Never Smokeless Tobacco: Never Alcohol Use Standard Drinks/Week Comments Yes 7 (1 standard drink = 0.6 oz pur e alcohol) Education Answer Date Recorded Are you interested in more education? Not on romaine e 10/14/2022 Are you concerned about learning? Not on file 10/14/2022 No 10/14/2022 No 10/14/2022 Digital Access Answer Date Recorded No 11/11/2022 No 11/11/2022 Reliable internet access at home? Not on file 11/11/2022 Device with a working camera? Not on file Sex and Gender Information Value Date Recorded Sex Assigned at Not on file Gender Identity Not on file Sexual Orientation Not on file Last Filed Vital Signs Vital Sign Reading Time Taken Comments Blood Pressure 126/68 01/23/2024 11:19 AM EDT Pulse 53 01/23/2024 11:19 AM EDT Temperature 36.3 ??C (97.3 ??F) 01/23/2024 11:19 AM E DT Respiratory Rate 18 01/23/2024 11:19 AM EDT Oxygen Saturation 100% 01/23/2024 11:19 AM EDT Inhaled Oxygen Concentration - - Weight 69 kg (152 lb 1.9 oz) 01/23/2024 11:19 AM EDT Height 171 cm (5' 7.32 ) 01/23/2024 11:19 AM EDT Body Mass Index 23.6 01/23/2024 11:19 AM EDT Plan of Treatment Upcoming Encounters Date Type Department Care Team (Late st Contact Info) Description 01/21/2025 11:10 AM EDT Blood Draw Laboratory Services, [facility] [address] [place] [address] Juancho Gilliam MD [address] [place] [address] [email or web address] 01/21/2025 12:00 PM EDT Office Visit [facility], Division of Hematologic Oncology, [facility] [address] [place] [address] Juancho Gilliam MD [address] [place] [address] [email or web address] Health Maintenance Due Date Last Done Comments ZOSTER VACCINES (1 of 2) 1964 LIPID PANEL 02/23/2016 02/22/2011 DEPRESSION SCREENING 05/13/2019 05/13/2018 RSV VACCINE (1 - 1-dose 75+ series) 2019 TSH LEVEL 12/24/2019 12/23/2018, 07/01/2010 INFLUENZA VACCINE (#1) 2024 COVID-19 VACCINE ( season) 2024 04/26/2021, 09/10/2020 Adult Td,Tdap Booster 12/18/2026 12/18/2016 HEPATITIS B SCREENING Completed 01/22/2010, 010 HEPATITIS C SCREENING Completed 01/22/2010, 010 HEPATITIS A VACCINES Aged Out 06/30/2011, 12/22/19 11 No longer eligible based on patient's age to complete this topic HEPATITIS B VACCINES Completed 06/30/2011, 02/22/2011, 12/21/2010, Additional history exists HIB VACCINES Aged Out 01/12/2012, 12/2010, 12/21/2010 No longer eligible based on patient's age to complete this topic PNEUMOCOCCAL VACCINES (50+ years) Completed 03/29/2020, 02/22/2011, 12/21/2010 SMOKING STATUS SCREENING (Once After 26 Yrs) Completed 01/23/2024 MENINGOCOCCAL VACCINES (ACWY) Aged Out No longer eligible based on patient's age to complete this topic Medical Devices Implanted Type Area Precast Concrete Ironworker Device Identifier Shelf Expiration Date Model / Serial / Lot Port Port Description:Portacath System Implant Arthroscopy Speedbridge Latex Free Biocomposite Swivelock Suture [place] 4.75x19.1mm - [id number] Implanted:Qty: 1 on 06/08/2017 by Randy Church MD at [facility] Left: Shoulder ARTHREX 01/15/2019 [id number] / / [id number] Procedures Procedure Name Priority Date/Time Associated Diagnosis Comments TSH Routine 12/23/2018 9:56 AM EDT Pre-op evaluation HISTORICAL LAB Routine 02/22/2011 12:52 PM EDT HISTORICAL LAB Routine 01/22/2010 6:11 AM EDT from Last 3 Months or Most Recently Relevant to Health Maintenance Results * TSH (12/23/2018 9:56 AM EDT) Pathologist [facility] TSH 2.74 0.27 - 4.20 uIU/mL [facility] Blood 12/23/2018 9:56 AM EDT 12/23/2018 10:25 AM EDT Amparo Hurtado NP LAB BLOOD ORDERABLES [facility] [address] [place] [address] * (ABNORMAL) Historical Lab (02/22/2011 12:52 PM EDT) Only the most recent of2 resultswithin the time period is included. BETA 2 MICROGLOBIN 2.1 0 - 2.7 mg/L [facility] SODIUM 137 135 - 145 mmol/L [facility] POTASSIUM 4.2 3.5 - 5.0 mmol/L [facility] CHLORIDE 104 98 - 108 mmol/L [facility] CO2 26 23 - 32 mmol/L [facility] BUN 14 9 - 25 mg/dL [facility] CREATININE 0.90 0.7 - 1.3 mg/dL [facility] GFR, ESTIMATED see comment mL/min/1. 73m2 [facility] Comment: >60 Abnormal if < or = 60 mL/min/1.73m2 If patient is Black, multiply result by 1.21 GLUCOSE 91 75 - 110 mg/dL [facility] CALCIUM 9.2 8.8 - 10.5 mg/dL [facility] TOTAL PROTEIN 6.6 6.0 - 8.0 g/dL [facility] ALBUMIN 4.1 3.7 - 5.4 g/dL [facility] GLOBULIN 2.5 2.3 - 4.2 G/DL [facility] SGOT 20 9 - 30 U/L [facility] SGPT 21 7 - 52 U/L [facility] ALK P'TASE 45 36 - 118 U/L [facility] BILI, TOTAL 0.3 0.2 - 1.2 mg/dL [facility] CHOLESTEROL 184 <200 mg/dL [facility] TRIGLYCERIDES 159(Abnorma lly H) 35 - 150 mg/dL [facility] HIGH DENS.LIPOPROT 33(Abnormal ly L) 40 - 60 mg/dL [facility] LDL (CALCULATED) 119 50 - 129 mg/dL [facility] VLDL (CALCULATED) 32 mg/dL [facility] PROSTATE SPEC ANTIGEN 4.66(Abnorm ally H) 0.0 - 4.0 ng/mL [facility] FREE LIGHT CHAIN SEE MEDICAL RECORDS AND/OR BICS [facility] High Sensitive CRP SEE MEDICAL RECORDS AND/OR BICS [facility] SERUM PROTEIN PANEL(EILEEN & PES) SEE MEDICAL RECORDS AND/OR BICS [facility] 25-HYDROXY D2 34 [facility] Comment: Unit: ng/mL 25-HYDROXY D3 19 [facility] Comment: Unit: ng/mL 25-HYDROXY D TOTAL 53 [facility] Comment: Unit: ng/mL (NOTE) -- REFERENCE VALUE -- 25-HYDROXY D TOTAL (D2+D3) Optimum levels in the normal population are 25-80 Test Performed by: [facility], [address] [place] [address], [place] [address]. Director: Cinthia Estrada, Ph.D. 02/22/2011 12:5 2 PM EDT 02/22/2011 1:06 PM EDT Juancho Gilliam MD LAB BLOOD ORDERABLES [facility] [address] [place] [address] from Last 3 Months or Most Recently Relevant to Health Maintenance Advance Directives Documents on File Type Date Recorded Patient Loom Control Chain Builder Expl anation Healthcare Proxy 12/30/2018 6:19 AM UPDATE D 12/30/18 * Full Code (Presumed) (Latest Code Status on File) Date Activated Date Inactivated Comments 02/26/2018 1:05 PM 02/27/2018 1:54 PM Care Teams Turntable Engineer Relationship Specialty Start Date End Date Peggy Eastman MD [address] [place] [address] PCP - General 10/23/14 Leandro Denis MD [address] [place] [address] [email or web address] Hematology 01/27/15 Jeffrey Tran MD [address] [place] [address] Parts Counter Sales Person Endocrinology 03/20/18 Additional Source Comments The information contained in this document represents components of the legal health record. It is not the complete legal health record.[facility]
--- OUTSIDE RECORDS SUMMARY | 2024-07-10 14:07 | XMS_ITS | Clinical Summary ---
Author Organization [facility] Address [address] [place] [address] Care Team Providers Care Driver License Reviewing Officer Name Role Phone Peggy Eastman Primary Care Provider [phone] Allergies No known active allergies Medications bortezomib (Velcade) 3.5 mg chemo subcutaneous syringe Inject under the skin. Active cholecalciferol 25 mcg (1,000 unit) tablet SMARTSI Tablet(s) By Mouth Daily Active DARATUMUMAB INTRAVENOU Infuse intravenously. Active dexAMETHasone (DECADRON) 4 mg tablet Take 4 mg by mouth. 6 Active diphenoxylate-at ropine (LOMOTIL) 2.5-0.025 mg per tablet Take by mouth. 3 Active ezetimibe (ZETIA) 10 mg tablet Take 10 mg by mouth once a day. Active fexofenadine (Jessica Allergy) 180 mg tablet Take 1 tablet by mouth daily. Active Restasis 0.05 % ophthalmic emulsion SMARTSI Drop(s) In Eye(s) Twice Daily 3 Active levothyroxine (SYNTHROID, LEVOTHROID) 150 mcg tablet Take 1 tablet by mouth. 8 Active tiZANidine (ZANAFLEX) 4 mg tablet SMARTSI Tablet(s) By Mouth 3 Times Daily PRN 3 Active traZODone (DESYREL) 50 mg tablet SMARTSI Tablet(s) By Mouth Every Night PRN Active triamcinolone acetonide (KENALOG) 0.1% cream SMARTSIG:Topical Daily 3 Active valACYclovir (VALTREX) 500 mg tablet SMARTSI Tablet(s) By Mouth Twice Daily Active vitamin D3 25 mcg (1,000 unit) capsule 1 capsule every 24 hours. Active apixaban (Eliquis) 5 mg tabletIndication s:Paroxysmal atrial fibrillation (HCC) Take 1 tablet (5 mg total) by mouth every 12 hours. 180 tablet 3 4 Active alfuzosin (UROXATRAL) 10 mg 24 hr tablet Take 10 mg by mouth once a day. 4 Active dilTIAZem (CARDIZEM) 60 mg tablet Take 1 pill every 4 hours as needed for heart racing/ atrial fibrillation 30 tablet 1 4 Active Active Problems Problem Noted Date Diagnosed Date Paroxysmal atrial fibrillation 09/03/2023 Other hyperlipidemia 09/03/2023 Encounters Date Type Department Care Team Description 06/09/2024 3:25 PM EST Lab [facility] Draw Site Department [address] [place] [address] Myxedema heart disease (Primary Dx); Other hyperlipidemia 05/06/2024 10:00 AM EST Follow-Up [address] Cardiology [address] [place] [address] Adolfo Sol MD Paroxysmal atrial fibrillation (HCC) (Primary Dx); Other hyperlipidemia 05/05/2024 10:53 AM EST - 05/05/2024 11:59 PM EST Hospital Encounter [facility] Bone Density Department [address] [place] [address] Hyperthyroidism; H/O multiple myeloma Discharge Disposition: Home or Self Care (01) from Last 3 Months Social History Tobacco Use Types Packs/Day Years Used Date Smoking Tobacco: Never Passive Smoke Exposure: Never Smokeless Tobacco: Never Tobacco Cessation:Counseling Given: Not Answered Alcohol Use Standard Drinks/Week Comments Not Currently 0 (1 standard drink = 0.6 oz pur e alcohol) Sex and Gender Information Value Date Recorded Sex Assigned at Male 08/30/2023 9:15 AM EDT Legal Sex Male 12:15 AM EDT Gender Identity Male 08/30/2023 9:15 AM EDT Sexual Orientation Not on file Last Filed Vital Signs Vital Sign Reading Time Taken Comments Blood Pressure 132/70 05/06/2024 10:25 AM EST Pulse 63 05/06/2024 10:03 AM EST Temperature 36.5 ??C (97.7 ??F) 07/16/2009 1:48 PM ES T Respiratory Rate - - Oxygen Saturation 99% 05/06/2024 10:03 AM EST Inhaled Oxygen Concentration - - Weight 70.3 kg (155 lb) 05/06/2024 10:03 AM EST Height 174.2 cm (5' 8.58 ) 07/09/2009 2:20 PM ES T Body Mass Index - - Plan of Treatment Upcoming Encounters Date Type Department Care Team (Late st Contact Info) Description 01/07/2025 10:30 AM EDT Follow-Up [address] Cardiology [address] [place] [address] Adolfo Sol MD [address] [place] [address] [address] [place] [address] Health Maintenance Due Date Last Done Comments Hepatitis C Screening 1945 Zoster Vaccines (1 of 2) 1994 Hepatitis B Vaccines (2 of 3 - 19+ 3-dose series) 07/28/2011 06/30/2011, 02/22/2011, 12/21/2010 RSV Vaccine (60+ years old a nd patients) (1 - 1-dose 75+ series) 2019 COVID-19 Vaccine (3 - 2023-2 5 season) 2024 04/26/2021, 09/10/2020 Influenza Vaccine (#1) 2024 Alcohol/Substance Use Screening 06/18/2024 Depression Screening and Follow-Up 06/18/2024 Health Care Proxy Review 06/18/2024 Social Drivers of Health Suzy ual Screening 06/18/2024 DTaP,Tdap,and Td Vaccines (5 - Td or Tdap) 12/18/2026 12/18/2016, 01/12/2012, 02/22/2011, Additional history exists Pneumococcal Vaccine: 65+ Years Completed 03/29/2020, 02/22/2011, 12/21/2010 Procedures * Due to [place] state law, this organization might not be sharing negative HIV tests. Procedure Name Priority Date/Time Associated Diagnosis Comments TSH REFLEX FREE T4 Routine 06/09/2024 3: 57 PM EST Other hyperlipidemia Myxedema heart disease ECG 12-LEAD Routine 05/06/2024 11:05 AM EST Paroxysmal atrial fibrillation (HCC) DEXA AXIAL AND TBS Routine 05/05/2024 11 :15 AM EST Hyperthyroidism H/O multiple myeloma from Last 3 Months Results * Due to [place] TELi[employer]hma law, this organization might not be sharing negative HIV tests. * TSH Reflex Free T4 (06/09/2024 3:57 PM EST) TSH 1.210 0.270 - 4.200 uIU/mL 06/09/2024 5:00 PM EST [facility] Blood Structure of peripheral vein / Unknown Venipuncture / Unknown 06/09/2024 3:57 PM EST 06/09/2024 4:19 PM EST us Precious Van LAB BLOOD ORDERABLES Final Resul t Performing Organization Address City/State/[facility] Co de Phone Number [facility] [address] [place] [address] [address] [place] [address], * ECG 12 lead (05/06/2024 11:05 AM EST) Ventricular Rate EKG 63 BPM MUSE EKG Atrial Rate 63 BPM MUSE EKG NJ Interval 178 ms MUSE EKG QRS Interval 80 ms MUSE EKG QT Interval 416 ms MUSE EKG QTC Interval 425 ms MUSE EKG P [place] 58 degrees MUSE EKG R [place] 51 degrees MUSE EKG T Wave [place] 55 degrees MUSE EKG 05/06/2024 11:0 5 AM EST 05/06/2024 2:08 PM EST Impressions MUSE EKG - 05/06/2024 2:08 PM EST Normal sinus rhythm Normal ECG No previous ECGs available Confirmed by Adolfo Sol ([id number]) on 05/06/2024 2:08:24 PM us Adolfo Sol MD ECG ORDERABLES Final Res ult MUSE EKG * DXA Axial and TBS (05/05/2024 11:15 AM EST) Anatomical Region Laterality Modality Bone Densitometr y 05/05/2024 3:51 PM EST Impressions 05/05/2024 3:51 PM EST This patient has neither osteopenia nor osteoporosis. Thank you for the courtesy of this referral. If this radiology report contains a blank impression section, it is an incomplete radiology report. ??Please contact the interpreting radiologist or applicable radiology division as soon as possible to obtain the completed interpretation. ? Workstation ID: [id number] Narrative 05/05/2024 3:51 PM EST EXAM: ??BONE MINERAL DENSITY PROCEDURE: ??The bone mineral density (BMD) of the spine and proximal left femur was determined using an external X-ray source(Xsilon). SITE: ??[facility] FINDINGS: L1-L4: ??BMD 1.22gm/cm2 ?? T-Score 1.2 ?Z-score: 2.3 Femoral neck: ??BMD 0.81gm/cm2 ?? T-Score -0.9 ?Z-score: 0.6 Trabecular bone score (TBS) L1-L4: ??TBS 1.41 ? Z-score: 1.4 ?(normal microarchitecture: >1.31; degraded: <1.24) The World Health Organization (WHO) defines osteoporosis (as studied in post-menopausal women) as BMD with a T value of (-)2.5 or less at any site. ??Osteopenia is defined by a T value between (-)1.1 and (-)2.4. In general, it is recommended that patients receive approximately 1000 mg of calcium daily, either from dairy products or supplements (including multiple vitamin). Patients should consider supplementing with vitamin D. Vitamin D recommendations should be discussed with Health Care Provider and measurement of vitamin D levels should be considered. Careful weight-bearing exercise is also useful in maintaining bone mass and to help protect against falls. Resulting Agency Comment [id number] Procedure Note Juan C Warren MD - 05/05/2024 EXAM: BONE MINERAL DENSITY PROCEDURE: The bone mineral density (BMD) of the spine and proximal leftfemur was determined using an external X-ray source(Hologic). SITE: [facility] FINDINGS: L1-L4: BMD 1.22gm/cm2 T-Score 1.2 Z-score: 2.3 Femoral neck: BMD 0.81gm/cm2 T-Score -0.9 Z-score: 0.6 Trabecular bone score (TBS) L1-L4: TBS 1.41 Z-score: 1.4 (normal microarchitecture:>1.31; degraded: <1.24) The World Health Organization (WHO) defines osteoporosis (as studied inpost-menopausal women) as BMD with a T value of (-)2.5 or less at anysite. Osteopenia is defined by a T value between (-)1.1 and (-)2.4. In general, it is recommended that patients receive approximately 1000 mgof calcium daily, either from dairy products or supplements (includingmultiple vitamin). Patients should consider supplementing with vitamin D.Vitamin D recommendations should be discussed with Health Care Providerand measurement of vitamin D levels should be considered. Carefulweight-bearing exercise is also useful in maintaining bone mass and tohelp protect against falls. IMPRESSION: This patient has neither osteopenia nor osteoporosis. Thank you for the courtesy of this referral. If this radiology report contains a blank impression section, it is anincomplete radiology report. Please contact the interpreting radiologistor applicable radiology division as soon as possible to obtain thecompleted interpretation. Workstation ID: [id number] [facility] DXA PROCEDURES Final Result from Last [address] [facility] [address] [place] [id number] [facility] Care Teams Driver License Reviewing Officer Relationship Specialty Start Date End Date Peggy Eastman [address] [place] [phone] PCP - General Internal Medicine 05/21/23
--- OUTSIDE RECORDS SUMMARY | 2024-07-10 14:07 | XMS_ITS | Encounter Summary ---
Author Organization [facility] Address [phone] [place] [address] Care Team Providers Care Leather Coater Name Role Phone Peggy Eastman MD Primary Care Provider [phone] Leandro Denis MD Unavailable [phone] Jeffrey Tran MD Unavailable [phone] Reason for Referral * - Closed Specialty Diagnoses / Procedures Referred By Helen dong Referred To Contact Diagnoses Dizziness Orthostatic lightheadedness Procedures Autonomic Testing Wilbert Epstein MD [address] [place] [phone] Email: [email or web address] Referral ID Status Reason Start Date Expiration Date Visits Re quested Visits Authorized [id number] Closed 04/16/2020 04/16/2021 1 1 Encounter Details Date Type Department Care Team (Latest Contact Info) Description 04/16/2020 Ancillary Orders [facility] Neurology at [address] [address] Wilbert Epstein MD [address] [place] [phone] [email or web address] Dizziness; Orthostatic lightheadedness Social History Tobacco Use Types Packs/Day Years [...] 11:10 AM EDT Blood Draw Laboratory Services, [facility] [address] [place] [address] Juancho Gilliam MD [address] [place] [address] [email or web address] 01/21/2025 12:00 PM EDT Office Visit [facility], Division of Hematologic Oncology, [facility] [address] [place] [address] Juancho Gilliam MD [address] [place] [address] [email or web address] documented as of this encounter Results * AUTONOMIC TESTING (05/26/2020 11:05 AM EST) Anatomical Region Laterality Modality Other Other Narrative 05/26/2020 10:00 AM EST Burt East MD, PhD ? 06/17/2020 10:17 AM Autonomic Testing Date/Time: 06/17/2020 10:16 AM Performed by: Burt East MD, PhD Authorized by: Wilbert Epstein MD Wilbert Epstein MD NEUROLOGY ORD ERABLES documented in this encounter Visit Diagnoses Diagnosis Dizziness Dizziness and giddiness Orthostatic lightheadedness Idiopathic autonomic neuropathy- Primary Idiopathic peripheral autonomic neuropathy, unspecified Dizziness Dizziness and giddiness Orthostatic lightheadedness Other cerebrovascular vasospasm and vasoconstriction documented in this encounter Additional Health Concerns Assessment Noted Time PHQ-2 Depression Total Score: 0 05/13/20 18 11:40 AM EST documented as of this encounter Care Teams Leather Coater Relationship Specialty Start Date End Date Peggy Eastman MD [address] [place] [address] PCP - General 10/23/14 Leandro Denis MD [address] [place], [place] [address], [place] [address] [email or web address] Hematology 01/27/15 Jeffrey Tran MD [address] [place] [address] [employer] Endocrinology 03/20/18 documented as of this encounter Additional Source Comments The information contained in this document represents components of the legal health record. It is not the complete legal health record.[facility]
--- OUTSIDE RECORDS SUMMARY | 2024-07-10 14:07 | XMS_ITS | Referral Summary ---
Author Organization [facility] Address [address] [place] [address] Care Team Providers Care Fork Truck Operator Name Role Phone Peggy Eastman Primary Care Provider [phone] Encounters Date Type Department Care Team Description 06/09/2024 3:25 PM EST Lab [facility] Draw Site Department [address] [place] [address] Myxedema heart disease (Primary Dx); Other hyperlipidemia 05/06/2024 10:00 AM EST Follow-Up [address] Cardiology [address] [place] [address] Adolfo Sol MD Paroxysmal atrial fibrillation (HCC) (Primary Dx); Other hyperlipidemia 05/05/2024 10:53 AM EST - 05/05/2024 11:59 PM EST Hospital Encounter [facility] Bone Density Department [address] [place] [phone] Hyperthyroidism; H/O multiple myeloma Discharge Disposition: Home or Self Care () from Last 3 Months Allergies No known active allergies Medications bortezomib [...] Paroxysmal atrial fibrillation 09/03/2023 Other hyperlipidemia 09/03/2023 Social History Tobacco Use Types Packs/Day Years [...] Info) Description 01/07/2025 10:30 AM EDT Follow-Up [address] Cardiology [address] [place] [address] Adolfo Sol MD [address] [place] [address] Procedures * Due to [place] [employer] law, this organization might not be sharing [...] Last 3 Months Results * Due to [place] [employer] law, this organization might not be sharing negative HIV tests. * TSH Reflex Free T4 (06/09/2024 3:57 PM EST) TSH 1.210 0.270 - 4.200 uIU/mL 06/09/2024 5:00 PM EST [facility] Blood Structure of peripheral vein / Unknown Venipuncture / Unknown 06/09/2024 3:57 PM EST 06/09/2024 4:19 PM EST Precious Van LAB BLOOD ORDERABLES Final Resul t Performing Organization Address City/[facility] Co de Phone Number [facility] [address] [facility] [address] [place] [address], [place] [phone] * ECG 12 lead (05/06/2024 11:05 AM EST) Ventricular Rate EKG 63 BPM MUSE EKG Atrial Rate 63 BPM MUSE EKG [place] Interval 178 ms MUSE EKG QRS Interval 80 ms MUSE EKG QT Interval 416 ms MUSE EKG QTC Interval 425 ms MUSE EKG P Hammond 58 degrees MUSE EKG R [place] 51 degrees MUSE EKG T Wave Hammond 55 degrees MUSE EKG 05/06/2024 11:0 5 AM EST 05/06/2024 2:08 PM EST Impressions MUSE EKG - 05/06/2024 2:08 PM EST Normal sinus rhythm Normal ECG No previous ECGs available Confirmed by Adolfo Sol ([id number]) on 05/06/2024 2:08:24 PM Adolfo Sol MD ECG ORDERABLES Final Res ult Performing Organization Address City/[facility] Co de Phone Number MUSE EKG * DXA Axial and TBS [...] obtain the completed interpretation. ? Workstation ID: [id number] Narrative 05/05/2024 3:51 PM EST EXAM: ??BONE MINERAL DENSITY PROCEDURE: ??The bone mineral density (BMD) of the spine and proximal left femur was determined using an external X-ray source(Utrip). SITE: ??[facility] FINDINGS: L1-L4: ??BMD 1.22gm/cm2 ?? T-Score [...] help protect against falls. Resulting Agency Comment [id number] Procedure Note Juan C Warren MD - 05/05/2024 EXAM: BONE MINERAL DENSITY PROCEDURE: The bone mineral density (BMD) of the spine and proximal leftfemur was determined using an external X-ray source(Hologic). SITE: [facility] FINDINGS: L1-L4: BMD 1.22gm/cm2 T-Score 1.2 [...] possible to obtain thecompleted interpretation. Workstation ID: [id number] Peggy Eastman IM DXA PROCEDURES Final Result from Last 3 Months Insurance [employer] [facility] Care Teams Fork Truck Operator Relationship Specialty Start Date End Date Peggy Eastman [address] [place] [phone] PCP - General Internal Medicine 05/21/23
--- OUTSIDE RECORDS SUMMARY | 2024-07-10 14:07 | XMS_ITS | Encounter Summary ---
Author Organization [facility] Address [phone] [place] [address] Care Team Providers Care Contact Lens Blocker Name Role Phone Peggy Eastman MD Primary Care Provider [phone] Leandro Denis MD Unavailable [phone] Johnnie Garcia MD Unavailable [phone] Jeffrey Tran MD Unavailable [phone] Encounter Details Date Type Department Care Team (Late st Contact Info) Description 06/08/2017 Procedure Pass [facility] Periop 6th floor [address] [place] [address] Social History Tobacco Use Types Packs/Day Years [...] 11:10 AM EDT Blood Draw Laboratory Services, [facility] [address] [place] [address] Juancho Gilliam MD [address] [place] [address] [email or web address] 01/21/2025 12:00 PM EDT Office Visit [facility], Division of Hematologic Oncology, [facility] [place] [address] [place] [address] Juancho Gilliam MD [address] [place] [address] [email or web address] documented as of this encounter Visit Diagnoses Not on filedocumented in this encounter Care Teams Contact Lens Blocker Relationship Specialty Start Date End Date Peggy Esatman MD [address] [place] [phone] PCP - General 10/23/14 Leandro Denis MD [address] [place] [address] [email or web address] [email or web address] 01/27/15 Johnnie Garcia MD [address] [place] [phone] [email or web address] Referring Physician Medical Oncology 08/26/15 08/14/17 Jeffrey Tran MD [address] [place] [phone] Screening Representative Endocrinology 03/20/18 documented as of this encounter Additional Source Comments The information contained in this document represents components of the legal health record. It is not the complete legal health record.[facility]
--- OUTSIDE RECORDS SUMMARY | 2024-07-10 14:07 | XMS_ITS | Encounter Summary ---
Author Organization [facility] Address [phone] [facility] [place] [address] Care Team Providers Care Terrazzo Journeyman Name Role Phone Peggy Eastman MD Primary Care Provider [phone] Leandro Denis MD Unavailable [phone] Jeffrey Tran MD Unavailable [phone] Encounter Details Date Type Department Care Team (Late Contact Info) Description 01/14/2018 Procedure Pass [facility] [address] [place] [address] Social History Tobacco Use Types Packs/Day Years [...] 11:10 AM EDT Blood Draw Laboratory Services, [facility] [address] [place] [address] Juancho Gilliam MD [address] [place] [address] [email or web address] 01/21/2025 12:00 PM EDT Office Visit [facility], Division of Hematologic Oncology, [facility] [place] [address] [place] [address] Juancho Gilliam MD [address] [place] [phone] [email or web address] documented as of this encounter Visit Diagnoses Not on filedocumented in this encounter Care Teams Terrazzo Journeyman Relationship Specialty Start Date End Date Peggy Easmtan MD [address] [address] PCP - General 10/23/14 Leandro Denis MD [address] [address] [email or web address] Hematology 01/27/15 Jeffrey Tran MD [address] [place] [address] Rx Specialist Endocrinology 03/20/18 documented as of this encounter Additional Source Comments The information contained in this document represents components of the legal health record. It is not the complete legal health record.[facility]
--- OUTSIDE RECORDS SUMMARY | 2024-07-10 14:07 | XMS_ITS | Encounter Summary ---
Author Organization [facility] Address [phone] [place] [address] Care Team Providers Care Motorcycle Mechanic Name Role Phone Peggy Eastman MD Primary Care Provider [phone] Leandro Denis MD Unavailable [phone] Johnnie Garcia MD Unavailable [phone] Jeffrey Tran MD Unavailable [phone] Encounter Details Date Type Department Care Team (Late st Contact Info) Description 05/03/2017 Procedure Pass [facility] [address] [place] [address] Social History Tobacco Use Types Packs/Day Years Used Date Smoking Tobacco: Never Alcohol Use Standard Drinks/Week Comments [...] 11:10 AM EDT Blood Draw Laboratory Services, [facility] [address] [address] [place] [address] Juancho Gilliam MD [address] [place] [address] [email or web address] 01/21/2025 12:00 PM EDT Office Visit [facility], Division of Hematologic Oncology, [facility] [address] [place] [address] Juancho Gilliam MD [address] [place] [address] [email or web address] documented as of this encounter Visit Diagnoses Not on filedocumented in this encounter Care Teams Motorcycle Mechanic Relationship Specialty Start Date End Date Peggy Eastman MD [address] [place] [address] PCP - General 10/23/14 Leandro Denis MD [address] [place] [phone] [email or web address] [email or web address] 01/27/15 Johnnie Garcia MD [address] [place] [phone] [email or web address] Referring Physician Medical Oncology 08/26/15 08/14/17 Jeffrey Tran MD [address] [place] [phone] Gluing Machine Operator Endocrinology 03/20/18 documented as of this encounter Additional Source Comments The information contained in this document represents components of the legal health record. It is not the complete legal health record.[facility]
--- OUTSIDE RECORDS SUMMARY | 2024-07-10 14:07 | XMS_ITS | Patient Health Record ---
Author Organization [facility] Address [address] [place] [address] Care Team Providers Care Rn Hospital Name Role Phone Peggy Eastman MD Primary Care Provider Sebastian Ortega Jr Unavailable ALLERGIES Allergen (clinical drug ingredient) Drug/Non Drug Allergy documented on EMR Reaction Allergy Type Onset Date Status Sulfa Unknown Drug Allergy Active REASON FOR REFERRAL No Information MEDICATIONS Medication SIG (Take, Route, Frequency, Duration) Notes Start Date End Date Status Sulfamethoxazole-Trimethopr im 800-160 MG Oral for 90 Active Tamsulosin HCl 0.4 MG Oral for 90 Active Synthroid 150 MCG 1 tablet in the morn ing on an empty stomach Orally Once a day Active Jessica 180 MG 1 tablet Orally Once a day Active Diphenoxylate-Atropine 2.5-0.025 MG TAKE 1 TABLET BY MOUTH FOUR TIMES A DAY NEEDED for 30 07/31/2022 Active Velcade 3.5 MG as directed Injection Active MiraLax (colon prep) 17 GM/SCOOP mixed with Gatorade or Crystal Light Orally begin at 5:00 p.m. the day before the procedure for 1 day 06/01/2021 Active Darzalex 100 MG/5ML as directed Intravenous Active D3-1000 25 MCG (1000 UT) Oral for 90 Active valACYclovir HCl 500 MG Oral for 90 Active IMMUNIZATIONS Vaccine Route Administration Date Status Comme nts Influenza Unknown 06/01/2021 Refused SOCIAL HISTORY Sex Assigned At : Social History Observation Description Sex Assigned At Unknown PROBLEMS Problem Type ICD Code Onset Dates Problem Status W/U Status Risk SNOMED Code Notes Problem Other dysphagia (R13.19) Active confirmed 41644291 Problem Duodenitis (K29.80) Active confirmed Duodenitis (05440232) Problem Gastritis (K29.70) Active confirmed Gastritis (2549610) Problem Diarrhea, unspecified type (R19.7) Active confirmed [id number] PLAN OF TREATMENT Future Test Test Name Order Date UPPER GI ENDOSCOPY 05/01/2012 COLONOSCOPY 05/01/2012 UPPER GI ENDOSCOPY 06/01/2021 COLONOSCOPY 06/01/2021 Insurance Providers Payer Name Payer Address Payer Phone Subscriber Number Group Number Insured Name Patient Relationship to Insured Coverage Start Date Coverage End Date [facility] [address] [place], [place] [id number] [id number] ROEL BLEVINS Self - patient is the insured MEDICAL (GENERAL) HISTORY Medical History History ICD Code Diarrhea elevated cholesterol multiple myeloma Osteopenia Graves' disease status post radioactive iodine Paroxysmal atrial fibrillation BPH Surgical History Surgery Date(Month/Year) arthroscopy-left knee Stem cell transplant, autologous
--- OUTSIDE RECORDS SUMMARY | 2024-07-10 14:07 | XMS_ITS | Patient Health Record ---
Author Organization [facility] Address [address] [place], [place] [phone] Care Team Providers Care Exploration Engineer Name Role Phone Peggy Eastman Primary Care Provider Johnnie Moreira Unavailable [phone] Allergies Allergen (clinical drug ingredient) Drug/Non Drug Allergy documented on EMR Reaction Allergy Type Onset Date Status sulfa rash Drug Allergy Active Reason For Referral No Information Medications Medication SIG (Take, Route, Frequency, Duration) Notes Start Date End Date Status Aspirin 81 MG 1 tablet Orally Once a day for 30 day(s) Active Velcade 3.5 MG as directed Injectio n once a week Active Darzalex 100 MG/5ML as directed Intravenous Active Atovaquone 750 MG/5ML 5 ml with food Ora lly once a week Active Bactrim 400-80 MG 1 tablet Orally Once a day for 30 day(s) 02/16/2020 Active Dex PC once a week Active Vitamin D3 25 MCG (1000 UT) 1 capsule Or ally Once a day for 30 day(s) Active Sulfamethoxazole-Trimethopr im 200-40 MG/5ML 10 ml or as directed by MD Orally Twice a day for 10 day(s) 02/03/2020 Active Synthroid 137 MCG 1 tablet in the morn ing on an empty stomach Orally Once a day for 30 day(s) Active Mylan Generic Epinephrine Auto-Injector 0.3 MG / 0.3 ML As Directed Active Jessica Allergy 180 MG 1 tablet Orally O nce a day Active valACYclovir HCl 500 MG 1 tablet Orally Once a day for 10 day(s) Active Tamsulosin HCl 0.4 MG 1 capsule Orally O nce a day for 30 day(s) Active Social History Tobacco Use: Social History Observation Description Date Details (start date - stop date) Never Smoker NA - NA Tobacco Question Answer Notes Are you a: never smoker Problems Problem Type SNOMED Code ICD Code Onset Dates Problem Status W/U Status Risk Notes Problem [id number] Chronic urticaria (L50.8) Active confirmed Problem [id number] 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) Active confirmed Plan Of Treatment No Information Insurance Providers Payer Name Payer Address Payer Phone Subscriber Number Group Number Insured Name Patient Relationship to Insured Coverage Start Date Coverage End Date [employer] [address] [place] [address] [id number] Leandro De La Vega Self - patient is the insured Medical (General) History Medical History History ICD Code Multiple myeloma Chronic urticaria Hypothyroidism Benign prostatic hypertrophy Hyperlipidemia Prostate cancer Vitamin D deficiency History of anxiety Rotator cuff injury Osteoarthritis (spine) Surgical History Surgery Date(Month/Year) Cervical diskectomy Rotator cuff tear repair, left Ganglion cyst excision Arthroscopic knee surgery, left Spinal cyst surgery Autologous bone marrow transplant Transurethral needle ablation (TUNA)
== END 2024-07-10 12:15 | disposition home or self-care (01) ==
PROVIDERS: PCP Internal Medicine; Visit Provider Urology
DX: R35.1 Nocturia (principal); C61 Malignant neoplasm of prostate; Z13.9 Encounter for screening, unspecified
CPT/HCPCS: 99213

== ENCOUNTER → 2024-07-10 11:40 | Outpatient (BNVA) | payer MEDICARE, SELFPAY | PROVIDERS: PCP Internal Medicine; Visit Provider Urology | DX: R35.1 Nocturia (principal); C61 Malignant neoplasm of prostate | CPT/HCPCS: 81003; 99212 ==

== ENCOUNTER 2024-11-07 10:03 | Outpatient (AMB) | payer MEDICARE, SELFPAY ==
--- NOTE | 2024-11-07 10:06 | A.OFFVIS_ITS ---
Intake Visit Reasons: 4m/PSA Intake Note: Patient is present for 4M/PSA Urology Medication:ALFUZOSIN Antibiotic Allergy:NONE Blood Thinner:NONE Branch Associate Required: No Allergies No Known Allergies Allergy (Verified 11/07/24 10:07) HPI Comments Details: Leandro is a pleasant male. He is a patient of . He seen for the following urologic conditions - lower urinary tract symptoms - prostate cancer Four month follow-up PSA Feeling run down Has not been recovering from myeloma infusions each month as well as he did in the past PSA increased to 6.7 add dutasteride Repeat PSA in 4 months JONELLE 2+ prostate soft Prostate cancer low-grade [address] Morin Initial PSA 3.5 Biopsy at diagnosis 2010 1 core of 12 - 5% Wesley 3 + 3 Repeat biopsy 2013 BPH no evidence of cancer Did not tolerate finasteride Followed with surveillance PSA - 04/07 3.7, 01/06 3.8, 10/08 5.0, 05/10 4.3, 10/09 4.1 24%, 07/12 5.2, 11/09 6.7 Urine normal Imaging - 10/08 MRI 0.7 cc left anterior peripheral lesion - PI-RADS 4 on diffusion, 65 cc volume - subclinical disease Lower urinary tract symptoms Longstanding Had been responsive to 0.4 mg tamsulosin Noticed increasing nocturia and weakness of stream Continues with this 0.8 mg tamsulosin May benefit from GreenLight laser procedure 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 PFSH Medical History Paroxysmal atrial fibrillation Graves disease Osteopenia Multiple myeloma HLD (hyperlipidemia) BPH w urinary obs/LUTS Prostate cancer Nocturia Surgical History H/O neck surgery Hx of spinal surgery H/O shoulder surgery Family History Mother CAD (coronary artery disease) Father Prostate cancer Social History Alcohol intake: current Alcohol intake frequency: holidays/special occasions only Alcohol type: wine Patient Tobacco Use Status: Never used Tobacco Review of Systems Const Denies chills and Denies fever(s) Card Reports no additional complaints and Denies syncope Resp Denies cough GI Denies abdominal pain and Denies heartburn Reports as per HPI and Denies change in libido Neuro Denies syncope Psych Denies change in libido Endo Denies change in libido Physical Exam Const General: cooperative, healthy appearing, comfortable and no acute distress Orientation/consciousness: patient oriented x3 HEENT Face and sinus: Yes normal facial exam Mouth: moist mucous membranes Neck Neck: Yes normal visual inspection, Yes full ROM and Yes trachea midline Chest Chest palpation & inspection: normal inspection of the chest Resp Effort & Inspection: normal respiratory effort, able to speak in complete sentences and no respiratory distress GI Inspection: Yes normal to inspection Rectal Exam - Male: Yes normal sphincter tone and Yes prostate normal Male General Exam: Yes normal external exam Penis: normal penis and circumcised Meatus: meatus normal Scrotum: scrotum normal Testes: Testes normal Back/Spine/Pelvis Cervical Spine: normal cervical lordosis Thoracic/Lumbar Spine: thoracic and lumbar spine normal to inspection Skin General skin exam: no rashes or lesions noted Neuro General: patient oriented x3, gait normal, tone normal and moves all extremities Extrem General: Yes normal to inspection and Yes capillary refill normal Assessment & Plan Assessment & Plan (1) Prostate cancer: Code(s): C61 - Malignant neoplasm of prostate Category: Medical (2) BPH w urinary obs/LUTS: Code(s): N40.1 - Benign prostatic hyperplasia with lower urinary tract symptoms; N13.8 - Other obstructive and reflux uropathy Category: Medical Plan Four month follow-up check PSA Orders: Orders AMB Urinalysis Automated Today Z13.9 - Encounter for screening, unspecified PSA,Total (Free>4and<10) 4 Months C61 - Malignant neoplasm of prostate Medications: New dutasteride 0.5 mg PO DAILY 90 days 90 caps 1RF C61 - Malignant neoplasm of prostate, N13.8 - Other obstructive and reflux uropathy, N40.1 - Benign pros tatic hyperplasia with lower urinary tract symptoms Patient Instructions: This note is constructed using voice recognition software. While every effort has been made to ensure accuracy machine operator helper errors may have been included. Imaging studies, laboratory and physical exam results were discussed and reviewed in detail. No major barriers to patient understanding were identified. An opportunity to ask questions regarding the treatment plan was provided. All questions were answered. The patient expressed understanding and agreement with the above treatment plan. The patient is aware they should contact our office by phone for worsening of their current condition or the appearance of new urologic symptoms. Compliance is encouraged with any medications and followup testing that is ordered. It is a privilege to participate in the urologic care of your patient. If you have any questions or concerns regarding treatment for the above conditions, or other urologic issues, please do not hesitate to contact me. The office telephone contact is [phone]. Sincerely, Dr Jeancarlos Garcia MD, [facility] - Urology Compassionate Specialist Care for the Genitourinary System Coding Level of Care Code Est Pt Level 4 (38519) Complex EM visit Add On G2211 Diagnoses Prostate cancer C61 BPH w urinary obs/LUTS N40.1; N13.8
--- OUTSIDE RECORDS SUMMARY | 2024-11-07 10:17 | XMS_ITS | Continuity of Care Document ---
Author Organization [facility] Address [address] [place] [address]- Care Team Providers Care Corrections Cadet Name Role Phone Raiza FERNANDO, Peggy Primary Care Physician [phone] Encounter [facility] Date(s): 10/02/24 - 11/01/[address] [address]- Attending Physician: AdmNaida mckenzie Admitting Physician: AdmtrNaida Referring Physician: Admtr, Ar8 Encounter Type: Triage Allergies, Adverse Reactions, Alerts [...] 8:31:00 PM EDT, Route to Pharmacy Electronically, [facility]/pharmacy #[id number], Partial fill upon patient request if the prescription is for a schedule II opioid drug., 174, cm, 12/24/20 19:42:00 EDT, Height, 72, kg, 12/24/20 19:42:00 EDT, Dry Weight Start Date: 12/24/20 Status: Ordered Quantity: 16.0 Unit: tablet Repeat number: 1 Jessica 24 Hour Allergy = 180 mg, By Mouth, Daily, 0 Refills, Maintenance, 01/23/14 9:31:04 AM EDT Start Date: 01/23/14 Status: [...] Refills, Maintenance, 08/22/19 11:21:00 PM EST, Tablet, [facility]/pharmacy #[id number], 177, cm, 08/01/19 8:52:00 EST, Height, 71.8, kg, 08/01/19 8:52:00 EST, DryWeight Start Date: 08/22/19 Status: Ordered Quantity: 60.0 Unit: tablet Repeat number: 5 sulfamethoxazole-trimethoprim 800 mg-160 mg oral tablet See Instructions, TAKE 1 TABLET BY MOUTH EVERY SUNDAY, SUNDAY AND SUNDAY, # 39 tablet, 4 Refills, Maintenance, 02/12/23 10:23:00 AM EDT, [id number], 90, TAKE 1 TABLET BY MOUTH EVERY SUNDAY,SUNDAY AND SUNDAY, 171.1, cm, 02/01/23 10:27:00 EDT, Height, 70.7, kg, 01/04/23 9:36:00 EDT, DryWeight Start Date: 02/12/23 Status: Ordered Quantity: 39.0 Unit: tablet Repeat number: 5 Synthroid 0.15 mg oral tablet See Instructions, 1 tablet By Mouth 5 days of the week, # 65 tablet, 3 Refills, Maintenance, 11/28/19 2:53:00 PM EDT, [facility], 177, cm, 11/28/19 10:33:00 EDT, Height, [...] smoker; Type: Cigarettes entered on: 10/01/15 Sex Male Sex Representation Male (finding) Patient Care team information Care Team Personnel Name: Nichole Braden Position: [facility] Onco RN Member Role: Primary Care Nurse Name: Chico Roa MD Position: [facility] Cardiology MD Member Role: Lifetime Consulting Physician Address: [address] [place] [address] [address] [place], [place] [address] Name: Na Hall RN Position: [facility] Onco RN Member Role: Primary Care Nurse Name: Alice Desai RN Position: [facility] Onco RN Member Role: Primary Care Nurse Name: Ale Bynum RN Position: [facility] Onco RN Member Role: Primary Care Nurse Name: Chelsea Jang RN Position: [facility] Onco RN Member Role: Primary Care Nurse Name: Alda Rodriguez RN Position: [facility] Onco RN Member Role: Primary Care Nurse Name: Mindy Stovall RN Position: [facility] JOSE Office Staff Member Role: Primary Care Nurse Name: Linette Winters RN Position: [facility] Onco RN Member Role: Primary Care Nurse Name: Peggy Eastman MD Position: [facility] Outreach Member Role: PCP Address: [address] [place] [address] [place] [address]- Telecom: Name: Selena Abarca RN, I Position: [facility] RN Member Role: Primary Care Nurse Care Team Related Persons Name: MELISSA AYALA Name: IMKE PAPPAS Name: CLIVE PAPPAS Name: NOT, GIVEN Insurance Providers Guarantor name: ROEL BLEVINS [employer] Plan Information #: 1 Payer: [employer] MED[employer]ARE ADV PPO Member Number: NA Policy Number: NA Group Number: [id number]
== END 2024-11-07 10:36 | disposition home or self-care (01) ==
LOC: HO.HUSH 10:03
PROVIDERS: PCP Internal Medicine; Visit Provider Urology
DX: C61 Malignant neoplasm of prostate (principal); N40.1 Benign prostatic hyperplasia with lower urinary tract symptoms; N13.8 Other obstructive and reflux uropathy; Z13.9 Encounter for screening, unspecified
CPT/HCPCS: 99214; G2211

== ENCOUNTER → 2024-11-07 10:03 | Outpatient (BNVA) | payer MEDICARE, SELFPAY | PROVIDERS: PCP Internal Medicine; Visit Provider Urology | DX: N40.1 Benign prostatic hyperplasia with lower urinary tract symptoms (principal); N13.8 Other obstructive and reflux uropathy; C61 Malignant neoplasm of prostate | CPT/HCPCS: 81003; 99212 ==

== ENCOUNTER 2025-04-23 08:46 | Outpatient (AMB) | payer MEDICARE, SELFPAY ==
--- NOTE | 2025-04-23 08:55 | A.OFFVIS_ITS ---
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 He is a patient of . He seen for the following urologic conditions - lower urinary tract symptoms - prostate cancer Four month follow-up PSA Previously had started dutasteride for PSA of 6.7 PSA fallen to 1.9 Myeloma infusions each month as well as he did in the past JONELLE 2+ prostate soft Push PSA surveillance out to six-month Prostate cancer low-grade [address] Morin Initial PSA 3.5 Biopsy at diagnosis 2010 1 core of 12 - 5% Wesley 3 + 3 Repeat biopsy 2013 BPH no evidence of cancer Did not tolerate finasteride Followed with surveillance PSA - 04/07 3.7, 01/06 3.8, 10/08 5.0, 05/10 4.3, 10/09 4.1 24%, 07/12 5.2, 11/09 6.7 Urine normal Imaging - 10/08 MRI 0.7 cc left anterior peripheral lesion - PI-RADS 4 on diffusion, 65 cc volume - subclinical disease Lower urinary tract symptoms Longstanding Had been responsive to 0.4 mg tamsulosin Noticed increasing nocturia and weakness of stream Continues with this 0.8 mg tamsulosin May benefit from GreenLight laser procedure 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 PFSH Medical History Paroxysmal atrial fibrillation Graves disease Osteopenia Multiple myeloma HLD (hyperlipidemia) BPH w urinary obs/LUTS Prostate cancer Nocturia Surgical History H/O neck surgery Hx of spinal surgery H/O shoulder surgery Family History Mother CAD (coronary artery disease) Father Prostate cancer Social History Alcohol intake: current Alcohol intake frequency: holidays/special occasions only Alcohol type: wine Patient Tobacco Use Status: Never used Tobacco Office Procedures Post Void Residual Post Residual Void Post Void Residual (PVR): 0 [id number] Void Residual by ultrasound Results AMB Urinalysis, Automated UA Leukoctes 0 Rahul/uL Last Edit by [facility], [facility] on 04/23/25 09:13 UA Nitrite Negative Last Edit by Karla Colon, [facility] on 04/23/25 09:13 UA Urobilinogen 0.2 mg/dL Last Edit by Karla Colon, [facility] on 04/23/25 09:13 UA Protein 0 mg/dL Last Edit by Karla Colon, [facility] on 04/23/25 09:13 UA pH 6.0 Last Edit by Karla Colon, [facility] on 04/23/25 09:13 UA Blood 0 Anthony/uL Last Edit by Karla Colon, [facility] on 04/23/25 09:13 UA Specific [place] 1.015 Last Edit by Karla Colon, [facility] on 04/23/25 09:1 3 UA Ketone Negative Last Edit by Karla Colon, [facility] on 04/23/25 09:13 UA Bilirubin 0 mg/dL Last Edit by Karla Colon, [facility] on 04/23/25 09:13 UA Glucose 0 mg/dL Last Edit by Karla Colon, [facility] on 04/23/25 09:13 Results Reviewed Results Reviewed: Laboratory Last Values Urine pH (Auto) 6.0 04/23/25 09:12 Specific [place] (Auto) 1.015 04/23/25 09:12 Urine Protein (Auto) 0 mg/dL 04/23/25 09:12 Glucose (UA)(Auto) 0 mg/dL 04/23/25 09:12 Urine Ketones (Auto) Negative 04/23/25 09:12 Urine Blood (Auto) 0 Anthony/uL 04/23/25 09:12 Urine Nitrite (Auto) Negative 04/23/25 09:12 Urine Bilirubin (Auto) 0 mg/dL 04/23/25 09:12 Urine Urobilinogen (Auto) 0.2 mg/dL 04/23/25 09:12 Leukocyte Esterase (Auto) 0 Rahul/uL 04/23/25 09:12 Assessment & Plan Assessment & Plan (1) Weak urinary stream: Code(s): R39.12 - Poor urinary stream Category: Medical (2) Nocturia more than twice per night: Code(s): R35.1 - Nocturia Category: Medical (3) Prostate cancer: Code(s): C61 - Malignant neoplasm of prostate Category: Medical Plan Six-month follow-up PSA Orders: Orders Prostate Specific Antigen 6 Months C61 - Malignant neoplasm of prostate Medications: Refilled dutasteride 0.5 mg PO DAILY 90 caps 1RF 90 days C61 - Malignant neoplasm of prostate, N13.8 - Other obstructive and reflux uropathy, N40.1 - Benign prostatic hyperplasia with lower urinary tract symptoms Patient Instructions: This note is constructed using voice recognition software. While every effort has been made to ensure accuracy blueberry grower errors may have been included. Imaging studies, laboratory and physical exam results were discussed and reviewed in detail. No major barriers to patient understanding were identified. An opportunity to ask questions regarding the treatment plan was provided. All questions were answered. The patient expressed understanding and agreement with the above treatment plan. The patient is aware they should contact our office by phone for worsening of their current condition or the appearance of new urologic symptoms. Compliance is encouraged with any medications and followup testing that is ordered. It is a privilege to participate in the urologic care of your patient. If you have any questions or concerns regarding treatment for the above conditions, or other urologic issues, please do not hesitate to contact me. The office telephone contact is [phone]. Sincerely, Dr Jeancarlos Garcia MD, [facility] - Urology Compassionate Specialist Care for the Genitourinary System Coding Level of Care Code Est Pt Level 3 (67144) Complex EM visit Add On G2211 Diagnoses Weak urinary stream R39.12 Nocturia more than twice per night R35.1 Prostate cancer C61 CPT Codes Post Residual Void - PVR CPT Code: 45309-Ktmo Void Residual by ultrasound ([id number])
--- OUTSIDE RECORDS SUMMARY | 2025-04-23 09:22 | XMS_ITS | Encounter Summary ---
Author Organization [facility] Address [address] [place] [address] [place] [address] Phone Care Team Providers Care Certified Nutritionist Name Role Phone Peggy Eastman MD Primary Care Provider [phone] Leandro Denis MD Unavailable [phone] Jeffrey Tran MD Unavailable [phone] Jude Walsh DO Primary Care Provider [phone] Encounter Details Date Type Department Care Team (Late st Contact Info) Description 12/30/2018 Procedure Pass BWF Periop 1st floor [address] [place] [address] Social History Tobacco Use Types Packs/Day Years Used Date Smoking Tobacco: Never Smokeless Tobacco: Never Alcohol Use Standard Drinks/Week Comments Yes 7 (1 standard drink = 0.6 oz pur e alcohol) Sex and Gender Information Value Date Recorded Sex Assigned at Not on file Legal Sex Male 6:39 PM EST Gender Identity Not on file Sexual Orientation Not on file documented as of this encounter Plan of Treatment Upcoming Encounters Date Type Department Care Team (Late st Contact Info) Description 08/05/2025 11:00 AM EST Blood Draw Laboratory Services, [facility] [address] [place] [address], [address]nd [place] [address] Juancho Gilliam MD [address] [place] [id number] [email or web address] 08/05/2025 12:00 PM EST Office Visit [facility], Division of Hematologic Oncology, [facility] [address] [facility], 7th [place] [address] Juancho Gilliam MD [address] [place] [address] [email or web address] documented as of this encounter Visit Diagnoses Not on filedocumented in this encounter Additional Health Concerns Assessment Noted Time PHQ-2 Depression Total Score: 0 05/13/20 18 11:40 AM EST documented as of this encounter Care Teams Certified Nutritionist Relationship Specialty Start Date End Date Peggy Eastman MD [address] [place] [address] PCP - General 10/23/14 02/11/25 Jude Walsh DO [address] [place] [address] PCP - General Family Medicine 02/12/25 Leandro Denis MD [address] [place] [address] [email or web address] Hematology 01/27/15 Jeffrey Tran MD [address] [place] [address] Crime Scene Technician Endocrinology 03/20/18 documented as of this encounter Additional Source Comments The information contained in this document represents components of the legal health record. It is not the complete legal health record.[facility]
--- OUTSIDE RECORDS SUMMARY | 2025-04-23 09:22 | XMS_ITS | Clinical Summary ---
Author Organization [facility] Address [address] [place] [address] Phone Care Team Providers Care Printing Film Stripper Name Role Phone Leandro Denis MD Unavailable [phone] Jeffrey Tran MD Unavailable [phone] Jude Walsh DO Primary Care Provider [phone] Allergies Active Allergy Reactions Criticality Noted Date Comments Sulfa (Sulfonamide Antibiotics) Rash 06/2010 Medications fexofenadine (MARCIAL) 180 MG tablet Take 180 mg by mouth daily. 0 Active valACYclovir (VALTREX) 500 MG tablet Take 500 mg by mouth daily. 0 Active cholecalciferol (VITAMIN D3) 1,000 unit tablet Take 1,000 Units by mouth daily. Active levothyroxine (SYNTHROID, LEVOTHROID) 150 MCG tablet Take 150 mcg by mouth 5 (five) times a week. Takes every day but Sunday and Active traZODone (DESYREL) 50 MG tablet Take 50 mg by mouth nightly as needed. Active tiZANidine (ZANAFLEX) 6 MG capsule TAKE 1 CAPSULE BY MOUTH THREE TIMES A DAY NEEDED FOR 10 DAYS 3 Active tamsulosin (FLOMAX) 0.4 mg Cap Take 0.8 mg by mouth nightly at bedtime. 3 Active ezetimibe (ZETIA) 10 mg tablet Take 10 mg by mouth daily. 3 Active dutasteride (AVODART) 0.5 mg capsule Take 0.5 mg by mouth daily. Active alfuzosin (UROXATRAL) 10 mg 24 hr tablet TAKE 1 TABLET BY MOUTH EVERYDAY BEFORE BEDTIME FOR 90 DAYS Active acetaminophen (TYLENOL) 325 mg tablet Take 650 mg by mouth every 6 (six) hours as needed. Active ELIQUIS 5 mg tablet Take 5 mg by mouth every 12 (twelve) hours. 5 Active dilTIAZem (CARDIZEM) 60 MG immediate release tablet Take 1 pill every 4 hours as needed for heart racing/ atrial fibrillation 5 Active bortezomib (VELCADE) injection Inject under the skin. Active RESTASIS 0.05 % suspension 1 drop 2 (two) times a day. 5 Active daratumumab (DARZALEX) 20 mg/mL Soln injection as directed Intravenous Active Active Problems Problem Noted Date Diagnosed [...] allergies Prostate cancer Overview (12/23/2018): active surveillence Encounters Date Type Department Care Team Description 03/02/2025 11:00 AM EDT Telemedicine - audio only [facility] Orthopedics & Sports Medicine [address] [place] [address] [place] [address] Juan C Benton MD Other secondary osteoarthritis of right knee (Primary Dx); Bone lesion; Internal derangement of right knee 03/02/2025 Ancillary Orders [facility],Outside Imaging [address] [place] [address] Mamta Oleary MD 02/26/2025 1:42 PM EDT - 02/26/2025 11:59 PM EDT Hospital Encounter [facility] Diagnostic X-ray Imaging, [address] [place] [address] America Conteh PA-C Discharge Disposition: Home or Self Care 02/26/2025 1:30 PM EDT Office Visit [facility] Department of Neurosurgery [address] [place] [address] America Conteh PA-C Lumbosacral spinal stenosis (Primary Dx) 02/26/2025 Orders Only [facility] Orthopedics & Sports Medicine [address] [place] [address] Pancho Silva MD 02/25/2025 - 02/25/2025 11:59 PM EDT Hospital Encounter [facility],Outside Imaging [address] [place] [address] Mamta, MD Mamta Discharge Disposition: Home or Self Care 02/12/2025 9:00 AM EDT Office Visit [facility] Orthopedics & Sports [address] [place] [address] Juan C Benton MD Bone lesion (Primary Dx); Other secondary osteoarthritis of right knee 02/12/2025 8:09 AM EDT - 02/12/2025 11:59 PM EDT Hospital Encounter [facility], X-Ray - [address] [place] [address] Juan C Benton MD Discharge Disposition: Home or Self Care 02/12/2025 Telephone [facility] Department of Neurosurgery [address] [place] [address] WinslowDaxa julianfer 01/27/2025 Orders Only [facility] Orthopedics & Sports Medicine [address] [place] [address] Rajani Brasher MA Right knee pain (Primary Dx) 01/21/2025 12:00 PM EDT Office Visit [facility], Division of Hematologic Oncology, [facility] [place] [address] [place] [address], 7th [place] [address] Juancho Gilliam MD Multiple myeloma, remission status unspecified (Primary Dx) from Last 3 Months Immunizations Immunization Administration Dates Next Due DTaP, unspecified formulation [...] Date Smoking Tobacco: Never Smokeless Tobacco: Never Tobacco Cessation:Counseling Given: Not Answered Alcohol Use Standard Drinks/Week Comments Yes 7 (1 standard drink = 0.6 oz pur e alcohol) Child or Family Care Answer Date Record ed Do you have problems with on e of the following making it difficult for you to work, study, or receive health care? No 02/26/2025 Education Answer Date Recorded Are you interested in more education? Not on romaine e 10/14/2022 Are you concerned about learning? Not on file 10/14/2022 No 10/14/2022 No 10/14/2022 Food Answer Date Recorded Within the past 6 months we worried whether our food would run out before we got money to buy more. Never True 02/26/2025 Within the past 6 months the food we bought just didn't last and we didn't have enough money to get more. Never True Residential Stability Answer Date Recor ded What is your housing situation today? I have rehana sing 02/26/2025 How many times have you move d in the past 12 months? Zero (I did not move) 02/26/2025 Paying for Meds Answer Date Recorded Do you have trouble paying for medicines? No 02/26/2025 Paying Utility Bills Answer Date Record ed Do you have trouble paying your heating or elect ricity bill? No 02/26/2025 Transportation Answer Date Recorded Has the lack of transportati on kept you from medical appointments or from getting medications? No 02/26/2025 Digital Access Answer Date Recorded No 02/26/2025 Yes 02/26/2025 Do you have reliable internet access at home? Ye s 02/26/2025 Do you have a device (e.g., phone, tablet, computer) with a working camera? Yes 02/26/2025 Intimate Partner Violence Answer Date R ecorded Are you denied basic needs s uch as food, clothing, or medical care? No 02/26/2025 In the past 12 months have y ou been in a relationship with a person who hurts, threatens, or tries to control you? No 02/26/2025 Are you denied basic needs s uch as food, clothing, or medical care? No 02/26/2025 In the past 12 months have y ou been in a relationship with a person who hurts, threatens, or tries to control you? No 02/26/2025 Sex and Gender Information Value Date Recorded Sex Assigned at Not on file Legal Sex Male 6:39 PM EST Gender Identity Not on file Sexual Orientation Not on file Last Filed Vital Signs Vital Sign Reading Time Taken Comments Blood Pressure 114/57 02/26/2025 1:04 PM EDT Pulse 67 02/26/2025 1:04 PM EDT Temperature 36.2 C (97.1 F) 02/26/2025 1:03 PM EDT Respiratory Rate 16 02/26/2025 12:5 9 PM EDT Oxygen Saturation 99% 02/26/2025 1:0 4 PM EDT Inhaled Oxygen Concentration - - Weight 72.5 kg (159 lb 14.4 oz) 02/26/2025 12:59 PM EDT with clothes/shoes Height 171.5 cm (5' 7.52 ) 02/26/2025 1 2:59 PM EDT Body Mass Index 24.66 02/26/2025 12:59 PM EDT Plan of Treatment Upcoming Encounters Date Type Department Care Team (Late st Contact Info) Description 08/05/2025 11:00 AM EST Blood Draw Laboratory Services, [address], 2nd [place] [address] Juancho Gilliam MD [address] [place] [id number] [email or web address] 08/05/2025 12:00 PM EST Office Visit [facility], Division of Hematologic Oncology, [address], [address] [place] [address] Juancho Gilliam MD [address] [place] [phone] [email or web address] Health Maintenance Due Date Last Done Comments ZOSTER VACCINES (1 of 2) 1964 LIPID PANEL 02/23/2016 02/22/2011 RSV VACCINE (1 - 1-dose 75+ series) 2019 INFLUENZA VACCINE (#1) 2025 COVID-19 VACCINE ( season) 2025 04/26/2021, 09/10/2020 TSH LEVEL 06/09/2025 06/09/2024, 01/2019, 07/01/2010 CREATININE LEVEL 01/21/2026 01/21/2025, 12/2023, 01/24/2023, Additional history exists DEPRESSION SCREENING 02/26/2026 02/26/2025 Adult Td,Tdap Booster 12/18/2026 12/18/2016 HEPATITIS A VACCINES Aged Out 06/30/2011, 12/22/19 11 No longer eligible based on patient's age to complete this topic HIB VACCINES Aged Out 01/12/2012, 12/2010, 12/21/2010 No longer eligible based on patient's age to complete this topic PNEUMOCOCCAL VACCINES (50+ years) Completed 03/29/2020, 02/22/2011, 12/21/2010 SMOKING STATUS SCREENING (Once After 26 Yrs) Completed 02/26/2025 MENINGOCOCCAL VACCINES (ACWY) Aged Out No longer eligible based on patient's age to complete this topic MENINGOCOCCAL VACCINES (B) Aged Out N o longer eligible based on patient's age to complete this topic Medical Devices Implanted Type Area Playground Monitor Device Identifier Shelf Expiration Date Model / Serial / Lot Port Port Description:Portacath System Implant Arthroscopy Speedbridge Latex Free Biocomposite Swivelock Suture [place] 4.75x19.1mm - [id number] Implanted:Qty: 1 on 06/08/2017 by Randy Church MD at [facility] Left: Shoulder ARTHREX 01/15/2019 [id number] / / [id number] Procedures Procedure Name Priority Date/Time Associated Diagnosis Comments OUTSIDE MR EXTREMITY LOWER REPORT ONLY Routine 02/26/2025 2:11 PM EDT XR LUMBOSACRAL SPINE 4 OR MORE VIEWS Routine 02/26/2025 2:10 PM EDT Lumbosacral spinal stenosis MRI LUMBAR SPINE Routine 02/26/2025 1:27 PM EDT Lumbosacral spinal stenosis MRI LOWER EXTREMITY OUTSIDE (NO INTERPRETATION) Routine 02/25/2025 12:00 AM EDT XR KNEE 3 VIEW (RIGHT) Routine 8:44 AM EDT Right knee pain SPEP PANEL WITH IMMUNOFIXATION Routine 01/21/2025 11:12 AM EDT Multiple myeloma, remission status unspecified FREE LIGHT CHAINS, SERUM Routine 01/21/2025 11:12 AM EDT Multiple myeloma, remission status unspecified COMPREHENSIVE METABOLIC PANEL (CMP) Routine 01/21/2025 11:12 AM EDT Multiple myeloma, remission status unspecified HC BLOOD COUNT COMPLETE AUTO&AUTO DIFRNTL WBC Routine 01/21/2025 11:12 AM EDT Multiple myeloma, remission status unspecified SERUM PROTEIN ELECTROPHORESIS Routine 01/21/2025 12:00 AM EDT THYROID STIMULATING HORMONE (TSH) Routine 12/23/2018 9:56 AM EDT Pre-op evaluation HISTORICAL LAB Routine 02/22/2011 12:52 PM EDT from Last 3 Months or Most Recently Relevant to Health Maintenance Results * Outside MR Extremity Lower report Only (02/26/2025 2:11 PM EDT) us Historical Provider MD MURPHY MR EXTREMITY Final Re sult * XR LUMBOSACRAL SPINE 4 OR MORE VIEWS (02/26/2025 2:10 PM EDT) Anatomical Region Laterality Modality L-spine Computed Radiogr aphy 02/26/2025 4:11 PM EDT Impressions 02/26/2025 4:11 PM EDT No displaced fracture. Mild degenerative changes of the lumbar spine. Narrative 02/26/2025 4:11 PM EDT XR LUMBOSACRAL SPINE 4 OR MORE VIEWS Referring clinician's provided indication for this examination in Epic: Lumbar radiculopathy, > 6 wks; Pain; Spinal stenosis, lumbosacral; s/p L5-S1 discectomy for cyst removal COMPARISON: None FINDINGS: Five non-rib bearing lumbar type vertebral bodies. Normal vertebral body heights. Mild multilevel disc space narrowing and endplate osteophytes. Facet arthropathy of the lower lumbar spine. Degenerative changes of the sacroiliac joints and pubic symphysis. Procedure Note Tanya Victor MD - 02/26/2025 XR LUMBOSACRAL SPINE 4 OR MORE VIEWS Referring clinician's provided indication for this examination in [facility]:Lumbar radiculopathy, > 6 wks; Pain; Spinal stenosis, lumbosacral; s/pL5-S1 discectomy for cyst removal COMPARISON: None FINDINGS: Five non-rib bearing lumbar type vertebral bodies. Normal vertebral bodyheights. Mild multilevel disc space narrowing and endplate osteophytes.Facet arthropathy of the lower lumbar spine. Degenerative changes of thesacroiliac joints and pubic symphysis. IMPRESSION: No displaced fracture. Mild degenerative changes of the lumbar spine. us America Conteh PA-C IMG XR SPINE Final Result * MRI Lower Extremity Outside (No Interpretation) (02/25/2025 12:00 AM EDT) Narrative SYSTEMGENERATED, DOCUMENTATION - 03/02/2025 9:14 AM EDT This study is for PACS storage only and not for interpretation. us Unknown Unknown IM[facility]all OUTSIDE IMAGING W/OUT INT ERPRETATION Final Result * XR KNEE 3 VIEW (RIGHT) (02/12/2025 8:44 AM EDT) Anatomical Region Laterality Modality Knee Right Computed Radiogr aphy 02/12/2025 11:5 9 AM EDT Narrative 02/12/2025 11:59 AM EDT XR KNEE 3 VIEW (RIGHT) Referring clinician's provided indication for this examination in [facility]: Pain COMPARISON: None FINDINGS: Right Knee: No fracture. Normal alignment. Moderate tricompartmental osteoarthritis. Small suprapatellar joint effusion. Linear osseous structures in the proximal fibula region could be a result of prior trauma. Procedure Note Clint Bowser MD, RILEY - 02/12/2025 XR KNEE 3 VIEW (RIGHT) Referring clinician's provided indication for this examination in Epic:Pain COMPARISON: None FINDINGS: Right Knee: No fracture. Normal alignment. Moderate tricompartmentalosteoarthritis. Small suprapatellar joint effusion. Linear osseousstructures in the proximal fibula region could be a result of priortrauma. us Juan C Benton MD IMG XR LOWER EXTREMITY Final Result * (ABNORMAL) SPEP panel with immunofixation (01/21/2025 11:12 AM EDT) TOTAL PROTEIN 6.7 6.4 - 8.3 g/dL [facility] SPEP SEE PATHOLOGY REPORT [facility] IMMUNOFIXATION SEE PATHOLOGY REPORT [facility] IgA 6(L) 70 - 400 mg/dL [facility] IMMUNOGLOBULIN G 1,436 700 - 1,600 mg/dL [facility] IMMUNOGLOBULIN M <15(L) 40 - 230 mg/dL [facility] Blood 01/21/2025 11:1 2 AM EDT 01/21/2025 11:18 AM EDT us Juancho Gilliam MD LAB BLOOD BKR ORDERABLES Iesha l Result Performing Organization Address City/State/RUST Co de Phone Number [facility] [address] [place] [phone] * Comprehensive metabolic panel (01/21/2025 11:12 AM EDT) SODIUM 139 136 - 145 mmol/L [facility] LIC# [id number] POTASSIUM 3.8 3.4 - 5.1 mmol/L [facility] LIC# [id number] CHLORIDE 105 98 - 107 mmol/L [facility] LIC# [id number] CO2 25 22 - 31 mmol/L [facility] LIC# [id number] BUN 22 6 - 23 mg/dL [facility] LIC# [id number] CREATININE 1.01 0.50 - 1.20 mg/dL [facility] LIC# [id number] GLUCOSE 91 70 - 100 mg/dL [facility] LIC# [id number] ALBUMIN 3.7 3.5 - 5.2 g/dL [facility] LIC# [id number] TOTAL PROTEIN 6.8 6.4 - 8.3 g/dL [facility] LIC# [id number] CALCIUM 9.0 8.8 - 10.7 mg/dL [facility] LIC# [id number] ALKALINE PHOSPHATASE 56 40 - 129 U/L [facility] LIC# [id number] TOTAL BILIRUBIN 0.2 0.2 - 1.2 mg/dL [facility] LIC# [id number] AST 20 <41 U/L [facility] LIC# [id number] ALT 20 <42 U/L [facility] LIC# [id number] GLOBULIN 3.1 2.3 - 4.2 g/dL [facility] LIC# [id number] EGFR 75 >59 mL/min/1.7 3m2 [facility] LIC# [id number] Comment:Estimated glomerular filtration rate calculated using the CKD-EPI refit equation. ANION GAP 9 7 - 17 mmol/L [facility] LIC# [id number] Blood 01/21/2025 11:1 2 AM EDT 01/21/2025 11:18 AM EDT us Juancho Gilliam MD LAB BLOOD BKR ORDERABLES Iesha l Result [facility] LIC# [id number] [address] [place] [address] * (ABNORMAL) Free light chains, serum (01/21/2025 11:12 AM EDT) FREE KAPPA LT CHAIN 3.5 3.3 - 19.4 mg/L [facility] FREE LAMBDA LT CHAIN 2.1(L) 5.7 - 26.3 mg/L [facility] FREE KAPPA LAMBDA RAT 1.67(H) 0.26 - 1.65 [facility] Blood 01/21/2025 11:1 2 AM EDT 01/21/2025 11:18 AM EDT us Juancho Gilliam MD LAB BLOOD BKR ORDERABLES Iesha l Result [facility] [address] [place] [address] * (ABNORMAL) CBC and differential (01/21/2025 11:12 AM EDT) WBC 4.34 4.00 - 10.00 K/uL [facility] LIC# [id number] RBC 4.35(L) 4.50 - 6.40 M/uL [facility] LIC# [id number] HGB 13.3(L) 13.5 - 18.0 g/dL [facility] LIC# [id number] HCT 39.2(L) 40.0 - 54.0 % [facility] LIC# [id number] PLT 120(L) 150 - 450 K/uL [facility] LIC# [id number] MCV 90.1 80.0 - 100.0 fL [facility] LIC# [id number] MCH 30.6 27.0 - 32.0 pg [facility] LIC# [id number] MCHC 33.9 32.0 - 36.0 g/dL [facility] LIC# [id number] RDW 13.2 11.5 - 14.5 % [facility] LIC# [id number] MPV UNABLE TO RESULT 8.4 - 12.0 fL [facility] LIC# [id number] NRBC 0.00 0 /100 WBCs [facility] LIC# [id number] ABSOLUTE NRBC 0.00 0 K/uL [facility] LIC# [id number] DIFF METHOD Auto [facility] LIC# [id number] NEUTS 70.8 48.0 - 76.0 % [facility] LIC# [id number] LYMPHS 16.4(L) 18.0 - 41.0 % [facility] LIC# [id number] MONOS 11.1(H) 4.0 - 11.0 % [facility] LIC# [id number] EOS 0.7 0.0 - 5.0 % [facility] LIC# [id number] BASOS 0.5 0.0 - 1.5 % [facility] LIC# [id number] % IMMATURE GRANS 0.5 0.0 - 1.0 % [facility] LIC# [id number] ABSOLUTE NEUTS 3.08 1.92 - 7.60 K/uL [facility] LIC# [id number] ABSOLUTE LYMPHS 0.71(L) 0.72 - 4.10 K/uL [facility] LIC# [id number] ABSOLUTE MONOS 0.48 0.16 - 1.10 K/uL [facility] LIC# [id number] ABSOLUTE EOS 0.03 0.00 - 0.50 K/uL [facility] LIC# [id number] ABSOLUTE BASOS 0.02 0.00 - 0.15 K/uL [facility] LIC# [id number] ABS IMMATURE GRANS 0.02 0.00 - 0.10 K/uL [facility] LIC# [id number] Blood 01/21/2025 11:1 2 AM EDT 01/21/2025 11:18 AM EDT us Juancho Gilliam MD LAB BLOOD BKR ORDERABLES Iesha mccarthy Result [facility] LIC# [id number] [address] [place], [place] [id number] * Protein Electrophoresis (01/21/2025 12:00 AM EDT) 01/21/2025 01/21/2025 Narrative [facility] - 01/29/2025 8:27 AM EDT CASE: [id number] PATIENT: LEANDRO BLEVINS Date: 1945 Sex: Male [facility] Department of Pathology [address] [place], [place] [id number] [place] License No.: [id number] Vibration Analyst: Yesenia Bills MD, PhD Resident: Andrews Sierra M.D., Ph.D. Pathologist: Behzad Spence M.D., Ph.D. CLINICAL DATA: Clinical Diagnosis: TEST ORDERED: Serum protein electrophoresis professional interpretation - [facility] 1 Serum immunofixation electrophoresis professional interpretation - [facility] RESULT: Reference range Total Protein 6.7 g/dl 6.4 - 8.3 g/dL Albumin 3.14 g/dl (LO) 3.20 - 5.30 g/dL Alpha 1 0.26 g/dl 0.10 - 0.40 g/dL Alpha 2 0.76 g/dl 0.50 - 1.00 g/dL Beta 0.64 g/dl 0.60 - 1.20 g/dL Gamma 1.90 g/dl (HI) 0.80 - 1.70 g/dL [place] 3.5 mg/L 3.3 - 19.4 mg/L Lambda 2.1 mg/L (LO) 5.7 - 26.3 mg/L [place]/Lambda 1.67 (HI) 0.26 - 1.65 IgG 1436 mg/dL 700 - 1600 mg/dL IgA 6 mg/dL (LO) 70 - 400 mg/dL IgM < 15 (LO) 40 - 230 mg/dL MOST RECENT PRIOR SERUM ELECTROPHORESIS RESULTS: Date Beta Gamma [place] Lambda K/L IgG IgA IgM MSp1 MSp2 MSp3 g/dl g/dl mg/l mg/l mg/dl mg/dl mg/dl g/dl g/dl g/dl 01/23/24 0.71 0.33 3.9 1.7 2.29 283 7 17 01/24/23 0.80 0.35 8.6 9.8 0.88 317 9 145 02/01/22 0.72 0.48 3.5 2.0 1.75 307 6 <15 04/21/21 0.83 0.22 3.1 6.4 0.48 350 6 < 15 01/15/19 1.39 0.56 35.6 8.0 4.45 895 55 39 02/13/18 1.05 0.63 11.8 9.3 1.27 616 50 76 02/28/18 1.08 0.62 11.3 7.8 1.45 636 49 46 08/10/17 0.87 0.58 9.7 10.3 0.94 539 61 56 02/08/17 1.09 0.56 8.4 8.2 1.02 561 64 47 08/17/16 0.87 0.61 9.0 8.7 1.03 537 63 40 02/03/16 0.84 0.66 7.7 7.6 1.01 620 76 47 08/12/15 0.76 0.57 7.9 8.5 0.92 666 90 63 04/08/15 0.94 0.77 8.5 8.2 1.03 719 105 66 //14 1.30 0.60 11.3 8.4 1.34 877 97 68 0.70 09/02/14 2.49 0.45 90.4 1.3 69.5 1710 58 36 1.89 05/12/14 1.97 0.62 30.3 1.9 15.9 1505 81 41 1.37 01/10/14 1.52 0.67 6.97 2.72 2.56 1330 109 29 0.62 07/12/13 0.97 0.60 5.10 2.63 1.93 859 84 33 01/09/13 0.88 0.79 2.80 3.56 0.78 824 70 37 10/15/12 0.88 0.72 2.15 2.48 0.86 744 62 32 07/11/12 0.80 0.78 2.03 2.80 0.72 784 70 36 01/13/12 0.84 0.91 2.40 3.66 0.65 878 62 35 09/07/11 0.99 0.60 <1.27 2.38 0.53 725 44 28 07/06/11 0.93 0.53 1.42 2.28 0.62 768 45 22 05/13/11 0.93 0.57 1.77 2.11 0.83 779 47 21 02/11/11 1.01 0.57 1.72 2.56 0.67 866 44 27 07/01/10 1.09 0.58 2.49 3.21 0.77 652 40 20 05/05/10 1.25 0.59 1.47 2.36 0.62 1000 47 19 1.05 04/15/10 1.27 0.58 2.34 2.78 0.84 1060 55 17 03/17/10 1.34 0.52 12/03/09 2.01 0.20 4.83 1.18 4.10 1430 28 34 1.90 10/15/09 2.46 0.25 6.25 2.28 2.74 1610 23 36 1.85 09/03/09 3.02 0.10 14.80 <0.90 2350 18 24 2.82 INTERPRETATION: Protein Electrophoresis: -No M-spike detected An atypical protein band is detected in the electropherogram, but immunofixation shows that this protein is not immunoglobulin. This protein is most likely fibrinogen from ex vivo microcoagulation. The gamma region concentration reported includes both the atypical protein and physiologic gamma proteins and is thus an overestimate. Immunofixation: -No monoclonal gammopathy By his/her signature below, the senior physician certifies that he/she personally reviewed all the laboratory data of the described specimen(s) and rendered or confirmed the diagnosis(es) related thereto. Final Diagnosis by Behzad Spence M.D., Ph.D., Electronically signed on January at 08:26:25AM us Juancho Gilliam MD PATHOLOGY ORDERABLES Final Re sult [facility] [address] [place] [phone] * TSH (12/23/2018 9:56 AM EDT) TSH 2.74 0.27 - 4.20 uIU/mL [facility] Blood 12/23/2018 9:56 AM EDT 12/23/2018 10:25 AM EDT us Amparo Hurtado MAKE UP GIRL LAB BLOOD BKR ORDERABLES Final Result [facility] [address] [place] [address] * (ABNORMAL) Historical Lab (02/22/2011 12:52 PM EDT) BETA 2 MICROGLOBIN 2.1 0 - 2.7 mg/L [facility] SODIUM 137 135 - 145 mmol/L [facility] POTASSIUM 4.2 3.5 - 5.0 mmol/L [facility] CHLORIDE 104 98 - 108 mmol/L [facility] CO2 26 23 - 32 mmol/L [facility] BUN 14 9 - 25 mg/dL [facility] CREATININE 0.90 0.7 - 1.3 mg/dL [facility] GFR, ESTIMATED see comment mL/min/1. 73m2 [facility] Comment: >60 Abnormal if < or = 60 mL/min/1.73m2 If patient is Black, multiply result by 1.21 GLUCOSE 91 75 - 110 mg/dL [facility] CALCIUM 9.2 8.8 - 10.5 mg/dL [facility] TOTAL PROTEIN 6.6 6.0 - 8.0 g/dL [facility] ALBUMIN 4.1 3.7 - 5.4 g/dL [facility] GLOBULIN 2.5 2.3 - 4.2 G/DL [facility] SGOT 20 9 - 30 U/L [facility] SGPT 21 7 - 52 U/L [facility] ALK P'TASE 45 36 - 118 U/L [facility] BILI, TOTAL 0.3 0.2 - 1.2 mg/dL [facility] CHOLESTEROL 184 <200 mg/dL [facility] TRIGLYCERIDES 159(Abnorma lly H) 35 - 150 mg/dL [facility]CER [place] HIGH DENS.LIPOPROT 33(Abnormal ly L) 40 - 60 mg/dL [facility] LDL (CALCULATED) 119 50 - 129 mg/dL [facility] VLDL (CALCULATED) 32 mg/dL [facility] PROSTATE SPEC ANTIGEN 4.66(Abnorm ally H) 0.0 - 4.0 ng/mL [facility] FREE LIGHT CHAIN SEE MEDICAL RECORDS AND/OR BICS [facility] High Sensitive CRP SEE MEDICAL RECORDS AND/OR BICS [facility] SERUM PROTEIN PANEL(EILEEN & PES) SEE MEDICAL RECORDS AND/OR BICS [facility] 25-HYDROXY D2 34 [facility] Comment: Unit: ng/mL 25-HYDROXY D3 19 [facility] Comment: Unit: ng/mL 25-HYDROXY D TOTAL 53 [facility] Comment: Unit: ng/mL (NOTE) -- REFERENCE VALUE -- 25-HYDROXY D TOTAL (D2+D3) Optimum levels in the normal population are 25-80 Test Performed by: [employer] [facility] [place], [address] [place] [address], [place] [address]. Director: Cinthia Estrada, Ph.D. 02/22/2011 12:5 2 PM EDT 02/22/2011 1:06 PM EDT Juancho Gilliam MD LAB BLOOD ORDERABLES Final Re sult [address] [address] from Last 3 Months or Most Recently Relevant to Health Maintenance Insurance MEDICARE PART A & B [facility] MEDICARE REPLACEMENT MEDICARE PART A & B [employer] MEDICARE REPLACEMENT MEDICARE PART A & B [facility] MEDICARE REPLACEMENT MEDICARE PART A & B [facility] MEDICARE REPLACEMENT MEDICARE PART A & B [facility] MEDICARE REPLACEMENT MEDICARE PART A & B [facility] MEDICARE REPLACEMENT MEDICARE PART A & B [facility] MEDIC[facility] REPLACEMENT [facility] MEDIC[facility] PART A & B [employer] PPO MEDICARE REPLACEMENT Advance Directives For more information, please contact: [phone] (9AM - 5PM [facility], Sunday-Sunday) Documents on File Type Date Recorded Patient Director Of Parks And Recreation Expl anation Healthcare Proxy 12/30/2018 6:19 AM UPDATE D 12/30/18 * Full Code (Presumed) (Latest Code Status on File) Date Activated Date Inactivated Comments 02/26/2018 1:05 PM 02/27/2018 1:54 PM Care Teams Printing Film Stripper Relationship Specialty Start Date End Date Jude Walsh DO [address] [place] [address] [id number] PCP - General Family Medicine 02/12/25 Leandro Denis MD [email or web address] Hematology 01/27/15 Jeffrey Tran MD Skin Care Specialist Endocrinology 03/20/18 Additional Source Comments The information contained in this document represents components of the legal health record. It is not the complete legal health record.[facility]
--- OUTSIDE RECORDS SUMMARY | 2025-04-23 09:22 | XMS_ITS | Encounter Summary ---
Author Organization [facility] Address [address] [place] [address] [place] [address] Phone Care Team Providers Care Instructor Decorating Name Role Phone Peggy Eastman MD Primary Care Provider [phone] Leandro Denis MD Unavailable [phone] Jeffrey Tran MD Unavailable [phone] Jude Walsh DO Primary Care Provider [phone] Encounter Details Date Type Department Care Team (Late st Contact Info) Description 02/26/2018 Procedure Pass BWF Periop 1st floor [address] [place] [address] Social History Tobacco Use Types Packs/Day Years [...] 11:00 AM EST Blood Draw Laboratory Services, [facility] [address] [place] [address], 2nd [place] [address] Juancho Gilliam MD [address] [place] [address] [email or web address] 08/05/2025 12:00 PM EST Office Visit [facility], Division of Hematologic Oncology, [facility] [address] [facility], 7th [place] [address] Juancho Gilliam MD [address] [place] [address] [email or web address] documented as of this encounter Visit Diagnoses Not on filedocumented in this encounter Care Teams Instructor Decorating Relationship Specialty Start Date End Date Peggy Eastman MD [address] [place] [address] [address] PCP - General 10/23/14 02/11/25 Jude Walsh DO [address] [place] [address] PCP - General Family Medicine 02/12/25 Leandro Denis MD [address] [place] [address] [address] [email or web address] Hematology 01/27/15 Jeffrey Tran MD [address] [place] [address] [address] Cnc Router Operator Endocrinology 03/20/18 documented as of this encounter Additional Source Comments The information contained in this document represents components of the legal health record. It is not the complete legal health record.[facility]
--- OUTSIDE RECORDS SUMMARY | 2025-04-23 09:22 | XMS_ITS | Clinical Summary ---
Author Organization [facility] Address [address] [place] [address] Care Team Providers Care Cosmetics Machine Operator Name Role Phone Jude Walsh DO Primary Care Provider + Allergies No known active allergies Medications bortezomib (Velcade) 3.5 mg chemo subcutaneous syringe Inject under the skin. Active cholecalciferol 25 mcg (1,000 unit) tablet Take 1,000 Units by mouth in the morning. Active DARATUMUMAB INTRAVENOU Infuse intravenously. Once / Month Active diphenoxylate-at ropine (LOMOTIL) 2.5-0.025 mg per tablet Take 1 tablet by mouth 4 times a day as needed for diarrhea. 01/07/20 13 Active Restasis 0.05 % ophthalmic emulsion SMARTSI Drop(s) In Eye(s) Twice Daily 03/13/20 23 Active levothyroxine (SYNTHROID, LEVOTHROID) 150 mcg tablet Take 1 tablet by mouth in the morning. 05/29/20 18 Active tiZANidine (ZANAFLEX) 4 mg tablet SMARTSI Tablet(s) By Mouth 3 Times Daily PRN 01/16/20 23 Active triamcinolone acetonide (KENALOG) 0.1% cream SMARTSIG:Topical Daily 05/14/20 23 Active alfuzosin (UROXATRAL) 10 mg 24 hr tablet Take 10 mg by mouth every night. 04/03/20 24 Active Eliquis 5 mg tabletIndication s:Paroxysmal atrial fibrillation TAKE 1 TABLET BY MOUTH EVERY 12 HOURS. 180 tablet 3 11/21/19 25 Active dutasteride (AVODART) 0.5 mg capsule Take 0.5 mg by mouth in the morning. 11/08/19 25 Active dilTIAZem (CARDIZEM) 60 mg tablet Take 1 pill every 4 hours as needed for heart racing/ atrial fibrillation 01/08/20 25 Active ezetimibe (ZETIA) 10 mg tablet Take 1 tablet (10 mg total) by mouth once a day. 90 tablet 1 02/03/20 25 025 Active Additional Information Patient taking differently:10 mg oralEvery morning, Reported on 03/20/2025 acetaminophen (TYLENOL) 325 mg tablet Take 650 mg by mouth every 6 hours as needed for pain. Active traZODone (DESYREL) 50 mg tablet Take 1 tablet (50 mg total) by mouth nightly as needed for sleep. 90 tablet 1 02/20/20 25 025 Active valACYclovir (VALTREX) 500 mg tablet Take 1 tablet (500 mg total) by mouth 2 times a day. 180 tablet 1 02/27/20 25 025 Active immune globulin,G,IgG,/ maltose (IMMUNE GLOB,IGG,,HUM,-M ALTOSE IV) Infuse intravenously every 30 days. IGG infusion in [facility], once/month Active vitamin D3 25 mcg (1,000 unit) capsule Take 1 capsule (1,000 Units total) by mouth every 24 hours. 90 capsule 1 04/20/20 25 Active Active Problems Problem Noted Date Diagnosed Date Multiple myeloma 11/26/2024 BPH (benign prostatic hyperplasia) 11/26/2024 Chronic urticaria 11/26/2024 Graves disease 11/26/2024 Hearing loss 11/26/2024 Overview (11/26/2024): wears hearing aides Hypothyroidism 11/26/2024 Overview (11/26/2024): taking synthroid 150 mcg four times a week and 137 mcg three days a week Osteopenia 11/26/2024 Polyarthralgia 11/26/2024 Hypothyroidism following radioiodine therapy 04/2025 Primary osteoarthritis of both hands 11/26/2024 Primary osteoarthritis of both knees 11/26/2024 Prostate cancer 11/26/2024 Overview (11/26/2024): active surveillence Rotator cuff injury 11/26/2024 Overview (11/26/2024): left s/p recent repair Spinal stenosis 11/26/2024 Paroxysmal atrial fibrillation 09/03/2023 Mixed hyperlipidemia 09/03/2023 Foraminal stenosis of cervical region 12/30/2018 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 Synovial cyst of lumbar spine 02/26/2018 Hyperthyroidism 12/27/2012 Overview (11/26/2024): Hyperthyroidism Osteoporosis 12/27/2011 Overview (11/26/2024): Osteoporosis 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): Transplantation of bone marrow Gastroesophageal reflux disease 03/22/2010 Overview (11/26/2024): Gastroesophageal reflux disease Genital herpes simplex 03/22/2010 Overview (11/26/2024): Genital herpes simplex Male hypogonadism 03/22/2010 Overview (11/26/2024): Hypogonadism Encounters Date Type Department Care Team Description 04/23/[address] Orthopedic Department [address] [address] Lupillo Aguilera MD 04/20/2025 Refill [facility] Internal Medicine & Pediatrics [address] [place] [address] Sandy Christina RN 04/15/[address] Orthopedic Department [address] [address] Lupillo Aguilera MD 03/20/2025 11:59 PM EDT Anesthesia Event [facility] [place] [address] [place] [address] Camilla Campa NP 03/11/2025 9:30 AM EDT Office Visit [facility] 94 [facility] Orthopedic Department 94 [facility] 1st [place] [address] Lupillo Aguilera MD Primary osteoarthritis of both knees (Primary Dx); Tear of medial meniscus of right knee, unspecified tear type, unspecified whether old or current tear, sequela 02/26/2025 Orders Only [facility] Internal Medicine & Pediatrics [address] [place] [address] Jude Walsh, DO 02/26/2025 Telephone [facility] Internal Medicine & Pediatrics [address] [place] [address] Jude Walsh, DO Med Refill 02/19/2025 Refill [facility] Internal Medicine & Pediatrics [address] [place] [address] Vidhya Anne LPN 02/06/2025 10:00 AM EDT Office Visit [facility] Internal Medicine & Pediatrics [address] [place] [address] Jude Waslh, DO Healthcare maintenance (Primary Dx) 02/02/2025 Refill [facility] Internal Medicine & Pediatrics [address] [place] [address] Vidhya Anne LPN from Last 3 Months Immunizations Immunization Administration Dates Next Due Covid-19 Monovalent Vaccine, Moderna, mRNA, PF 1 06/26/2020,09/10/2020 Diphtheria, Tetanus Toxoids and Acellular Pertussis Vaccine, 5 Pertussis Antigens 01/12/2012 Diphtheria, Tetanus Toxoids and Acellular Pertussis Vaccine, Unspecified Formulation 02/22/2011,12/21/2010 Haemophilus Influenzae Type B Vaccine, Conjugate Unspecified Formulation 02/22/2011,12/21/2010 Haemophilus Influenzae Type B Vaccine, PRP-T Con jugate 01/12/2012 Hepatitis A Vaccine, Unspecified Formulation 11/2010 Hepatitis A and Hepatitis B Vaccine 06/30/2011 Measles, Mumps, and Rubella Vaccine 01/12/2012 Pneumococcal Conjugate Vaccine, 13 Valent 2010,12/21/2010 Pneumococcal Polysaccharide Vaccine, 23 Valent 1 Poliovirus Vaccine, Unspecified Formulation 12/2010,12/21/2010 Tetanus Toxoid, Reduced Diph theria Toxoid, and Acellular Pertussis Vaccine, Adsorbed 12/18/2016 Social History Tobacco Use Types Packs/Day Years Used Date Smoking Tobacco: Never Passive Smoke Exposure: Never Smokeless Tobacco: Never Tobacco Cessation:Counseling Given: Not Answered Alcohol Use Standard Drinks/Week Comments Not Currently 0 (1 standard drink = 0.6 oz pur e alcohol) Hunger Vital Sign Answer Date Recorded Within the past 12 months, y ou worried that your food would run out before you got the money to buy more. Never true 01/31/20 25 Within the past 12 months, t he food you bought just didn't last and you didn't have money to get more. Never true 01/30/2025 [facility] Utilities Answer Date Recorded In the past 12 months has th e electric, gas, oil, or water company threatened to shut off services in your home? No 01/30/2025 Transportation Answer Date Recorded In the past 12 months, has l ack of reliable transportation kept you from medical appointments, meetings, work or from getting things needed for daily living? No 01/30/2025 Housing Answer Date Recorded Housing Risk Low 2 01/30/2025 Housing Risk Medium Not on file 01/30/2025 Housing Risk High Not on file 01/30/2025 What is your living situation today? LSSTEADY 01/30/2025 Sex and Gender Information Value Date Recorded Sex Assigned at Male 08/30/2023 9:15 AM EDT Legal Sex Male 12:15 AM EDT Gender Identity Male 08/30/2023 9:15 AM EDT Sexual Orientation Straight 01/30/2025 10 :31 AM EDT Last Filed Vital Signs Vital Sign Reading Time Taken Comments Blood Pressure 124/65 03/20/2025 9:50 AM EDT Pulse 74 03/20/2025 9:50 AM EDT Temperature 37 C (98.6 F) 03/11/2025 9:37 AM EDT Respiratory Rate 16 03/20/2025 9:50 AM EDT Oxygen Saturation 99% 03/20/2025 9:50 AM EDT Inhaled Oxygen Concentration - - Weight 73.2 kg (161 lb 6.4 oz) 03/20/2025 9:50 A M EDT Height 174 cm (5' 8.5 ) 03/20/2025 9:50 AM EDT Body Mass Index 24.18 03/20/2025 9:50 AM EDT Plan of Treatment Upcoming Encounters Date Type Department Care Team (Late st Contact Info) Description 08/10/2025 9:30 AM EST Follow-Up [facility] Internal Medicine & Pediatrics [address] [place] [address] Jude Walsh DO [address] [place] [address] 09/09/2025 10:30 AM EDT Follow-Up [facility] 100 [facility] Cardiology [address] [place] [address] [address] [place] [address] Adolfo Sol MD 100 [facility] [address] [place] [address] Health Maintenance Due Date Last Done Comments RSV Vaccine (60+ years old and patients) (1 - 1-dose 75+ series) 2019 COVID-19 Vaccine (3 - Moderna risk series) 05/24/2021 04/26/2021, 09/10/2020 Health Care Proxy Review 06/18/2024 Influenza Vaccine (#1) 2025 Depression Screening and Follow-Up 01/30/2026 01/30/2025 Social Drivers of Health Annual Screening 01/30/2026 01/30/2025 Zoster Vaccines (1 of 2) 02/06/2026 Pos tponed from 1963 (Patient Declined) Fall Risk Screening 03/20/2026 03/20/2025 DTaP,Tdap,and Td Vaccines (5 - Td or Tdap) 12/18/2026 12/18/2016, 01/12/2012, 02/22/2011, Additional history exists Hepatitis B Vaccines Discontinued 06/30/2011 Pneumococcal Vaccine: 50+ Years Completed 03/29/2020, 02/22/2011, 12/21/2010 Alcohol/Substance Use Screening Completed 01/30/2025 Procedures * Due to [place] law, this organization might not be sharing negative HIV tests. Procedure Name Priority Date/Time Associated Diagnosis Comments TSH REFLEX FREE T4 STAT 03/20/2025 11 :11 AM EDT Preoperative examination ECG 12-LEAD Routine 03/20/2025 9:58 AM EDT Preoperative examination XR KNEE 3 VW RIGHT Routine 03/11/2025 10 :05 AM EDT Primary osteoarthritis of both knees from Last 3 Months Results * Due to [place] state law, this organization might not be sharing negative HIV tests. * TSH Reflex Free T4 (03/20/2025 11:11 AM EDT) TSH 1.040 0.270 - 4.200 uIU/mL 03/20/2025 11:52 AM EDT [facility] Blood Structure of peripheral vein / Unknown Venipuncture / Unknown 03/20/2025 11:11 AM EDT 03/20/2025 11:11 AM EDT Camilla Campa [facility] LAB BLOOD ORDERABLES Final Resu lt Performing Organization Address City/State/[facility] Co de Phone Number [facility] [address] [facility] 2ND [place] [address], [place] [phone] * ECG 12 lead For Preop? Yes (03/20/2025 9:58 AM EDT) Ventricular Rate EKG 65 BPM MUSE EKG Atrial Rate 65 BPM MUSE EKG W[place] Interval 174 ms MUSE EKG QRS Interval 82 ms MUSE EKG QT Interval 396 ms MUSE EKG QTC Interval 411 ms MUSE EKG P [place] 51 degrees MUSE EKG R [place] 47 degrees MUSE EKG T Wave [place] 58 degrees MUSE EKG 03/20/2025 9:58 AM EDT 03/20/2025 11:22 AM EDT Impressions MUSE EKG - 03/20/2025 11:22 AM EDT Normal sinus rhythm Low voltage QRS Confirmed by Adolfo Sol ([id number]) on 03/20/2025 11:22:35 AM Narrative Procedure Note Adolfo Sol MD - 03/20/2025 IMPRESSION: Normal sinus rhythm Low voltage QRS Confirmed by Adolfo Sol ([id number]) on 03/20/2025 11:22:35 AM us Camilla Campa NP ECG ORDERABLES Final Result MUSE EKG * X-Ray Knee Right 3 Views (03/11/2025 10:05 AM EDT) Anatomical Region Laterality Modality Lower Extremities, Knee Right Radiogra phic Imaging Narrative 03/11/2025 12:11 PM EDT Standing AP lateral and sunrise and sunrise of his right knee show just a little bit of some mild tibial spine peaking no real squaring off of either the medial or lateral tibial plateau no sclerosis over the the medial or lateral tibial plateau no osteophytes posteriorly and on the sunrise the patella is well centralized in the trochlear groove I would grade this is grade 1-2 on the the Kellgren-Roman scale us Lupillo Aguilera MD IMG XR PROCEDURES Final Re sult from Last 3 Months Insurance [employer] MCR Care Teams Cosmetics Machine Operator Relationship Specialty Start Date End Date Jude Walsh DO [address] [place] [phone] PCP - General Family Medicine 11/26/24
--- OUTSIDE RECORDS SUMMARY | 2025-04-23 09:22 | XMS_ITS | Encounter Summary ---
Author Organization [facility] Address [address] [facility] [address] [address] [place] [address] Phone Care Team Providers Care Geodetic Technician Name Role Phone Peggy Eastman MD Primary Care Provider [phone] Leandro Denis MD Unavailable [phone] Johnnie Garcia MD Unavailable [phone] Jeffrey Tran MD Unavailable [phone] Jude Walsh DO Primary Care Provider [phone] Encounter Details Date Type Department Care Team (Late st Contact Info) Description 05/03/2017 Procedure Pass [facility] [place] Radiology [address] [place] [address] Social History Tobacco Use Types Packs/Day Years [...] 11:00 AM EST Blood Draw Laboratory Services, [facility] [address] [place] [address], 2nd [place] [address] Juancho Gilliam MD [address] [place] [phone] [email or web address] 08/05/2025 12:00 PM EST Office Visit [facility] for Multiple Myel[facility], Division of Hematologic Oncology, [facility] [address] [place] [address], 7th [place] [address] Juancho Gilliam MD [address] [place] [address] [email or web address] documented as of this encounter Visit Diagnoses Not on filedocumented in this encounter Care Teams Geodetic Technician Relationship Specialty Start Date End Date Peggy Eastman MD [address] [address] PCP - General 10/23/14 02/11/25 Jude Walsh DO [address] [place] [address] PCP - General Family Medicine 02/12/25 Leandro Denis MD [address] [address] [email or web address] Hematology 01/27/15 Johnnie Garcia MD [address] [place] [phone] [email or web address] Referring Physician Medical Oncology 08/26/15 08/14/17 Jeffrey Tran MD [address] [place] [phone] [place] [employer] Manager Endocrinology 03/20/18 documented as of this encounter Additional Source Comments The information contained in this document represents components of the legal health record. It is not the complete legal health record.[facility]
--- OUTSIDE RECORDS SUMMARY | 2025-04-23 09:23 | XMS_ITS | Encounter Summary ---
Author Organization [facility] Address [address] [facility] [address] [place] [address] Phone Care Team Providers Care Battalion Chief Name Role Phone Peggy Eastman MD Primary Care Provider [phone] Leandro Denis MD Unavailable [phone] Jeffrey Tran MD Unavailable [phone] Jude Walsh DO Primary Care Provider [phone] Reason for Referral * - Closed Specialty Diagnoses / Procedures Referred By Contac t Referred To Contact Diagnoses Dizziness Orthostatic lightheadedness Procedures Autonomic Testing Wilbert Epstein MD Phone: tel: fax: mailto:[email or web address] Referral ID Status Reason Start Date Expiration Date Visits Re quested Visits Authorized [id number] Closed 04/16/2020 04/16/2021 1 1 Encounter Details Date Type Department Care Team (Latest Contact Info) Description 04/16/2020 Ancillary Orders [facility] Neurology at [place] [id number] [address] Wilbert Epstein MD [address] [place] [phone] [email or web address] Dizziness; Orthostatic lightheadedness Social History Tobacco Use [...] 11:00 AM EST Blood Draw Laboratory Services, [address], 2nd [place] [address] Juancho Gilliam MD [address] [place] [email or web address] 08/05/2025 12:00 PM EST Office Visit [facility] for Multiple Myeloma, Division of Hematologic Oncology, [address], 7th [place] [address] Juancho Gilliam MD [address] [place] [phone] [email or web address] documented as of this encounter Results * AUTONOMIC TESTING (05/26/2020 11:05 AM EST) Anatomical Region Laterality Modality Other Other Narrative 05/26/2020 10:00 AM EST Burt East MD, PhD 06/17/2020 10:17 AM Autonomic Testing Date/Time: 06/17/2020 10:16 AM Performed by: Burt East MD, PhD Authorized by: Wilbert Epstein MD us Wilbert Epstein MD NEUROLOGY ORDERABLES Final Result documented in this encounter Visit Diagnoses Diagnosis Dizziness Dizziness and giddiness Orthostatic lightheadedness Idiopathic autonomic neuropathy- Primary Idiopathic peripheral autonomic neuropathy, unspecified Dizziness Dizziness and giddiness Orthostatic lightheadedness Other cerebrovascular vasospasm and vasoconstriction documented in this encounter Additional Health Concerns Assessment Noted Time PHQ-2 Depression Total Score: 0 05/13/20 18 11:40 AM EST documented as of this encounter Care Teams Battalion Chief Relationship Specialty Start Date End Date Peggy Eastman MD [address] [address] PCP - General 10/23/14 02/11/25 Jude Walsh DO [address] [place] [address] PCP - General Family Medicine 02/12/25 Leandro Denis MD [address] [place] [address] [email or web address] Hematology 01/27/15 Jeffrey Tran MD [address] [address] Veterinary Manager Endocrinology 03/20/18 documented as of this encounter Additional Source Comments The information contained in this document represents components of the legal health record. It is not the complete legal health record.[facility]
--- OUTSIDE RECORDS SUMMARY | 2025-04-23 09:23 | XMS_ITS | Encounter Summary ---
Author Organization [facility] Address [address] [place] [address] Care Team Providers Care Technical Sales Representative Name Role Phone Juancho Gilliam MD Primary Care Provider [phone] Encounter Details Date Type Department Care Team (Late st Contact Info) Description 07/17/2014 Clinical Conversion Encounter Department of Urology [facility] Urology [address] [place] [address] Lauren Foster MD [address] [place] [address] Social History Tobacco Use Types Packs/Day Years Used Date Smoking Tobacco: Never Assessed Sex and Gender Information Value Date Recorded Sex Assigned at Not on file Legal Sex Male 12:53 AM EST Gender Identity Not on file Sexual Orientation Not on file documented as of this encounter Progress Notes * Lauren Foster MD - 08/14/2014 5:32 PM EST [id number],RICHARD [facility] [place], [place]. Reason For Visit Prostate cancer History of Present Illness The patient is a 68-year-old man who's primary urologist is Dr. Morin. I last saw him in 2010. He was found to have one core [place] 6 prostate cancer comprising 5% of one core at the left lateral mid gland. Other past medical history is significant for multiple myeloma status post bone marrow transplant. He was on testosterone replacement for hypogonadism and PSA fredrick to 7.1. Baseline was in the neighborhood of 3.5 ng/ml. He was also having voiding complaints. The patient was taken for cystoscopy on May 17, 2011. 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 The scope was easily passed. Trilobar BPH was also seen. He underwent transrectal ultrasound-guided prostate biopsy at the same time. His past urologic history is also notable for having undergone a TUNA procedure. Biopsy 06/02/14 showed all BENIGN TISSUE in all cores. He returns here to talk about his BPH treatment. He is bothered by a slow stream, nocturia, frequency. He is on FLomax and the benefit is starting to decrease. He is not interested in further tinkering with medications. He wants to explore possible outlet procedures. Allergies Sulfa Drugs Vitals Laura [facility] Data Includes: Current Encounter 17Jul2014 11:55AM 17Jul2014 11:41AM Pain Score 0 0 Allergy Status Reviewed Yes Yes Safe at Home Yes Yes Physical Exam Not performed - counseling intense visit - plan to do JONELLE under anesthesia Assessment Low risk prostate cancer Symptomatic BPH Plan I advised cystoscopy as a first step, since there is mention in his history of a possible urethral stricture. Sonographic prostate size measurement can be obtained from Dr. Morin's office. I advised this cysto be done awake, but he refuses. He had an episode of retention after cysto in 2010 and catheterization was the Second most painful thing I ever experienced. I have recommended Dr. Gonzalez for an outlet procedure if he so desires as this is her subspecialty area of expertise. 25 minutes counseling about the above Signatures Electronically signed by : LAUREN FOSTER MD; Jul 17 2014 12:17PM documented in this encounter Miscellaneous Notes * Letter - Lauren Foster MD - 08/14/2014 5:32 PM EST [id number],RICHARD [place], [place] Reason For Visit Prostate cancer History of Present Illness The patient is a 68-year-old man who's primary urologist is Dr. Morin. I last saw him in 2010. He was found to have one core [place] 6 prostate cancer comprising 5% of one core at the left lateral mid gland. Other past medical history is significant for multiple myeloma status post bone marrow transplant. He was on testosterone replacement for hypogonadism and PSA fredrick to 7.1. Baseline was in the neighborhood of 3.5 ng/ml. He was also having voiding complaints. The patient was taken for cystoscopy on May 17, 2011. 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 The scope was easily passed. Trilobar BPH was also seen. He underwent transrectal ultrasound-guided prostate biopsy at the same time. His past urologic history is also notable for having undergone a TUNA procedure. Biopsy 06/02/14 showed all BENIGN TISSUE in all cores. He returns here to talk about his BPH treatment. He is bothered by a slow stream, nocturia, frequency. He is on FLomax and the benefit is starting to decrease. He is not interested in further tinkering with medications. He wants to explore possible outlet procedures. Allergies Sulfa Drugs Vitals Laura [employer] Data Includes: Current Encounter 17Jul2014 11:55AM 17Jul2014 11:41AM Pain Score 0 0 Allergy Status Reviewed Yes Yes Safe at Home Yes Yes Physical Exam Not performed - counseling intense visit - plan to do JONELLE under anesthesia Assessment Low risk prostate cancer Symptomatic BPH Plan I advised cystoscopy as a first step, since there is mention in his history of a possible urethral stricture. Sonographic prostate size measurement can be obtained from Dr. Morin's office. I advised this cysto be done awake, but he refuses. He had an episode of retention after cysto in 2010 and catheterization was the Second most painful thing I ever experienced. I have recommended Dr. Gonzalez for an outlet procedure if he so desires as this is her subspecialty area of expertise. 25 minutes counseling about the above Signatures Electronically signed by : LAUREN FOSTER MD; Jul 17 2014 12:17PM documented in this encounter Plan of Treatment Not on file documented as of this encounter Visit Diagnoses Not on filedocumented in this encounter Care Teams Technical Sales Representative Relationship Specialty Start Date End Date Juancho Gilliam MD [address] [place], [place] [id number] PCP - General 04/27/14 documented as of this encounter
--- OUTSIDE RECORDS SUMMARY | 2025-04-23 09:23 | XMS_ITS | Encounter Summary ---
Author Organization [facility] Address [address] [place] [address] Phone Care Team Providers Care Tail Ripper Name Role Phone Peggy Eastman MD Primary Care Provider [phone] Leandro Denis MD Unavailable [phone] Johnnie Garcia MD Unavailable [phone] Jeffrey Tran MD Unavailable [phone] Jude Walsh DO Primary Care Provider [phone] Encounter Details Date Type Department Care Team (Late st Contact Info) Description 06/08/2017 Procedure Pass BWF Periop 6th floor [address] [place] [address] Social History Tobacco Use Types Packs/Day Years [...] 11:00 AM EST Blood Draw Laboratory Services, [facility] [address] [place] [address], 2nd [place] [address] Juancho Gilliam MD [address] [place] [phone] [email or web address] 08/05/2025 12:00 PM EST Office Visit [facility] for Multiple [facility]eloma, Division of Hematologic Oncology, [facility] [address] [place] [address], 7[address] [place] [address] Juancho Gilliam MD [address] [place] [address] [email or web address] documented as of this encounter Visit Diagnoses Not on filedocumented in this encounter Care Teams Tail Ripper Relationship Specialty Start Date End Date Peggy Eastman MD [address] [place] [address] PCP - General 10/23/14 02/11/25 Jude Walsh DO [address] [place] [address] PCP - General Family Medicine 02/12/25 Leandro Denis MD [address] [phone] [email or web address] 01/27/15 Johnnie Garcia MD [address] [place] [phone] [email or web address] Referring Physician Medical Oncology 08/26/15 08/14/17 Jeffrey Tran MD [address] [place] [phone] Dock Associate Endocrinology 03/20/18 documented as of this encounter Additional Source Comments The information contained in this document represents components of the legal health record. It is not the complete legal health record.[facility]
--- OUTSIDE RECORDS SUMMARY | 2025-04-23 09:23 | XMS_ITS | Clinical Summary ---
Author Organization [facility] Address [address] [place] [address] Care Team Providers Care Cloth Finishing Range Back Tender Name Role Phone Juancho Gilliam MD Primary Care Provider [phone] Allergies Active Allergy Reactions Criticality Noted Date Comments Sulfa (Sulfonamide Antibiotics) Other (See Comments) 06/16/2011 Active Problems Problem Noted Date Diagnosed Date Text: Enlarged Prostate 07/21/2014 Overview (09/12/2014): Text: Enlarged Prostate Social History Tobacco Use Types Packs/Day Years Used Date Smoking Tobacco: Never Sex and Gender Information Value Date Recorded Sex Assigned at Not on file Legal Sex Male 12:53 AM EST Gender Identity Not on file Sexual Orientation Not on file Last Filed Vital Signs Vital Sign Reading Time Taken Comments Blood Pressure 124/84 06/16/2011 9:17 AM EST Pulse 72 06/16/2011 9:17 AM EST Temperature - - Respiratory Rate 16 06/16/2011 9:17 AM EST Oxygen Saturation - - Inhaled Oxygen Concentration - - Weight 71.1 kg (156 lb 11.2 oz) 06/16/2011 9:17 AM EST Height 172.7 cm (5' 8 ) 06/16/2011 9:17 AM EST Body Mass Index 23.83 06/16/2011 9:17 AM EST Plan of Treatment Not on file Care Teams Cloth Finishing Range Back Tender Relationship Specialty Start Date End Date Juancho Gilliam MD [address] [place] [address] PCP - General 04/27/14
--- OUTSIDE RECORDS SUMMARY | 2025-04-23 09:23 | XMS_ITS | Encounter Summary ---
Author Organization [facility] Address [address] [place] [address] Care Team Providers Care Sole Stitcher Hand Name Role Phone Jude Walsh DO Primary Care Provider + Encounter Details Date Type Department Care Team (Late st Contact Info) Description 04/15/2025 Telephone [facility] 94 [facility] Orthopedic Department [address] [address] Lupillo Aguilera MD [address] [place] [address] Social History Tobacco Use Types Packs/Day Years Used Date Smoking Tobacco: Never Passive Smoke Exposure: Never Smokeless Tobacco: Never Alcohol Use Standard Drinks/Week Comments Not Currently [...] money to get more. Never true 01/30/2025 [facility] Utilities Answer Date Recorded In the past 12 months has e electric, gas, oil, or water company [...] Orientation Straight 01/30/2025 10 :31 AM EDT documented as of this encounter Miscellaneous Notes * Telephone Encounter - German Goodwin MA - 04/15/2025 11:39 AM EDT Printed out copy of MRI preformed @[facility] on 02/25/[address] Aguilera'sinbox on desk as requested * Telephone Encounter - German Goodwin MA - 04/15/2025 11:24 AM EDT Note from encounter on 03/11/25 New Patient Right knee pain MRI done @[facility] on 02/25/25 HPI: 79-year-old who is referred to me because of knee pain he had plain x-rays done at [facility] on at mentioned normal alignment moderate tricompartmental osteoarthritis and a MRI scan done at [facility] in [place] which suggested horizontal and radial tearing within the body and posterior horn of the medial meniscus the lateral meniscus was intact they did not mention much in the way of anysignificant arthritic change on this MRI scan Medical History Past Medical History: Diagnosis Date Atrial fibrillation (HCC) History of multiple myeloma Surgical History Past Surgical History: Procedure Laterality Date BACK SURGERY KNEE SURGERY SHOULDER SURGERY Social History Occupational History Not on file Tobacco Use Smoking status: Never Passive exposure: Never Smokeless tobacco: Never Vaping Use Vaping status: Never Used Substance and Sexual Activity Alcohol use: Not Currently Drug use: Not Currently Sexual activity: Not on file Family History No family history on file. Allergies No Known Allergies Medications Ordered Prior to Encounter Current Outpatient Medications on File Prior to Visit Medication Sig Dispense Refill acetaminophen (TYLENOL) 325 mg tablet Take 650 mg by mouth every 6 hours as needed for pain. alfuzosin (UROXATRAL) 10 mg 24 hr tablet Take 10 mg by mouth once a day. bortezomib (Velcade) 3.5 mg chemo subcutaneous syringe Inject under the skin. (Patient not taking: Reported on 03/11/2025) cholecalciferol 25 mcg (1,000 unit) tablet SMARTSI Tablet(s) By Mouth Daily DARATUMUMAB INTRAVENOU Infuse intravenously. dexAMETHasone (DECADRON) 4 mg tablet Take 4 mg by mouth. dilTIAZem (CARDIZEM) 60 mg tablet Take 1 pill every 4 hours as needed for heart racing/ atrial fibrillation diphenoxylate-atropine (LOMOTIL) 2.5-0.025 mg per tablet Take by mouth. dutasteride (AVODART) 0.5 mg capsule SMARTSI Capsule(s) By Mouth Daily Eliquis 5 mg tablet TAKE 1 TABLET BY MOUTH EVERY 12 HOURS. 180 tablet 3 ezetimibe (ZETIA) 10 mg tablet Take 1 tablet (10 mg total) by mouth once a day. 90 tablet 1 fexofenadine (Jessica Allergy) 180 mg tablet Take 1 tablet by mouth daily. (Patient not taking: Reported on 03/11/2025) levothyroxine (SYNTHROID, LEVOTHROID) 150 mcg tablet Take 1 tablet by mouth. Restasis 0.05 % ophthalmic emulsion SMARTSI Drop(s) In Eye(s) Twice Daily tiZANidine (ZANAFLEX) 4 mg tablet SMARTSI Tablet(s) By Mouth 3 Times Daily PRN traZODone (DESYREL) 50 mg tablet Take 1 tablet (50 mg total) by mouth nightly as needed for sleep. 90 tablet 1 triamcinolone acetonide (KENALOG) 0.1% cream SMARTSIG:Topical Daily valACYclovir (VALTREX) 500 mg tablet Take 1 tablet (500 mg total) by mouth 2 times a day. 180 tablet 1 vitamin D3 25 mcg (1,000 unit) capsule 1 capsule every 24 hours. No current facility-administered medications on file prior to visit. Review of Systems is on Eliquis also has a history of some asthma Objective: BP 112/66 Temp 37 ??C (98.6 ??F) Ht 1.708 m (5' 7.25 ) Wt 72.9 kg (160 lb 12.8 oz) BMI 25.00 kg/m?? Ortho Exam the day of the right knee he comes out to good full extension the patella tracks well hedoes not open up appreciably with the varus or valgus stress anterior drawer or Ayaan but is tender over the at the medial joint spaces Radiology: Reviewed his plain x-rays today he has got pretty minimal mild medial joint space narrowing Assessment: Patient is a 79-year-old with pain over the the medial aspect of his his knee with a positive MRI scan I went over with him the the some of the the pros and cons of what he might do here I discussed the the possibility of knee arthroscopy he thinks that this is bothersome enough that he would consent to do this we had him sign the of the consent he will discuss scheduling with Promise and we will go ahead and and put him in the at the docket for his knee arthroscopy Plan: State the plan will be for him to have right knee arthroscopy the the consent was signed and will go about scheduling this documented in this encounter Plan of Treatment Upcoming Encounters Date Type Department Care Team (Late st Contact Info) Description 08/10/2025 9:30 AM EST Follow-Up [facility] Internal Medicine & Pediatrics [address] [place] [address] Jude Walsh DO [address] [place] [address] 09/09/2025 10:30 AM EDT Follow-Up [address] Cardiology [address] [address] Adolfo Sol MD 100 [facility] [address] [place] [address] documented as of this encounter Visit Diagnoses Not on filedocumented in this encounter Care Teams Sole Stitcher Hand Relationship Specialty Start Date End Date Jude Walsh DO [address] [place] [address] PCP - General Family Medicine 11/26/24 documented as of this encounter
--- OUTSIDE RECORDS SUMMARY | 2025-04-23 09:23 | XMS_ITS | Encounter Summary ---
Author Organization [facility] Address [address] [place] [address] Care Team Providers Care Extruder Operator Vertical Name Role Phone Jude Walsh DO Primary Care Provider + Encounter Details Date Type Department Care Team (Late st Contact Info) Description 04/23/2025 Telephone [facility] 94 [facility] Orthopedic Department [address] [address] Lupillo Aguilera MD [address] [place] [address] Social History Tobacco Use Types Packs/Day Years [...] money to get more. Never true 01/30/2025 [facility] Utilities Answer Date Recorded In the [...] encounter Miscellaneous Notes * Telephone Encounter - Serena Flores - 04/23/2025 8:51 AM EST Anthony Ravi expedited authorizations reached out about patients denial for surgery. I sent over the office note and MRI notes to the appeals. [phone] We just have to wait for the response. documented in this encounter Plan of Treatment Upcoming Encounters Date Type Department Care Team (Late st Contact Info) Description 08/10/2025 9:30 AM EST Follow-Up [facility] Internal Medicine & Pediatrics [address] [place] [address] Jude Walsh DO [address] [place] [address] 09/09/2025 10:30 AM EDT Follow-Up [address] Cardiology [address] [place] [address] Adolfo Sol MD [address] [place] [address] documented as of this encounter Visit Diagnoses Not on filedocumented in this encounter Care Teams Extruder Operator Vertical Relationship Specialty Start Date End Date Jude Walsh DO [address] [place] [address] PCP - General Family Medicine 11/26/24 documented as of this encounter
--- OUTSIDE RECORDS SUMMARY | 2025-04-23 09:23 | XMS_ITS | Encounter Summary ---
Author Organization [facility] Address [address] [place] [address] Care Team Providers Care In School Suspension Aide Name Role Phone Juancho Gilliam MD Primary Care Provider [phone] Encounter Details Date Type Department Care Team (Late st Contact Info) Description 06/02/2011 Clinical Conversion Encounter Department of Urology [facility] Urology [address] [place] [address] Jennifer Dunn RN Social History Tobacco Use Types Packs/Day Years Used Date Smoking Tobacco: Never Assessed Sex and Gender Information Value Date Recorded Sex Assigned at Not on file Legal Sex Male 12:53 AM EST Gender Identity Not on file Sexual Orientation Not on file documented as of this encounter Progress Notes * Jennifer Dunn RN - 07/11/2014 3:38 PM EST [id number],RICHARD REVISED [place], [place]. UROLOGY ROEL BLEVINS 06/02/2011 LC# [id number] : 1945 Second Visit ID: Visit ID: [id number] ATTENDING PHYSICIAN: Viktor Castro MD CHIEF COMPLAINT: Newly diagnosed prostate cancer. This nurse navigator was contacted by Alexandra at offices of Dr. Tato Morin in [facility]. Dr. Morin is requesting consultation as soon as possible with one of the laparoscopic urologic surgeons given his patient's newly diagnosed prostate cancer. I have scheduled patient to meet with Dr. Castro, next June 06, at 8:30 a.m. In anticipation of that consultation, I have requested that Alexandra fax to my attention all notes, reports, and results pertinent to his diagnosis and secondly to be certain the patient hand carries the slides to his consultation that we may forward them to [facility] pathology for review. Alexandra denies the patient has had any recent imaging. I have also asked Alexandra to provide patient with my contact information in case he has any questions or concerns leading up to his consultation on June 06. Jennifer Marte RN [phone] [phone] J: [id number] CC: THIS DOCUMENT WAS ELECTRONICALLY AUTHENTICATED BY Jennifer Marte RN ON 07/05/2011 15:09:18 * Jennifer Dunn RN - 07/11/2014 3:38 PM EST [id number],RICHARD [place], [place]. UROLOGY ROEL BLEVINS 06/02/2011 # [id number] : 1945 Second Visit ID: Visit ID: [id number] The patient was originally offered an appointment within three business days on Monday, June 06, 2011. Unfortunately, he was unable to make that appointment and he has been rescheduled to meet with Dr. Jeffrey Roth, on June 16 at 09:00 a.m. Jennifer Marte RN [phone] [phone] J: [id number] CC: THIS DOCUMENT WAS ELECTRONICALLY AUTHENTICATED BY Jennifer Marte RN ON 07/05/2011 15:08:33 documented in this encounter Plan of Treatment Not on file documented as of this encounter Visit Diagnoses Not on filedocumented in this encounter Care Teams In School Suspension Aide Relationship Specialty Start Date End Date Juancho Gilliam MD [address] [place] [address] PCP - General 04/27/14 documented as of this encounter
--- OUTSIDE RECORDS SUMMARY | 2025-04-23 09:23 | XMS_ITS | Encounter Summary ---
Author Organization [facility] Address [address] [place] [address] Care Team Providers Care Parts Room Clerk Name Role Phone Juancho Gilliam MD Primary Care Provider [phone] Encounter Details Date Type Department Care Team (Latest Contact Info) Description 06/16/2011 Clinical Conversion Encounter Department of Urology [facility] Urology [address] [place] [address] Lauren Foster MD [address] [place] [address] Malignant neoplasm of prostate Social History Tobacco Use Types Packs/Day Years Used Date Smoking Tobacco: Never Assessed Sex and Gender Information Value Date Recorded Sex Assigned at Not on file Legal Sex Male 12:53 AM EST Gender Identity Not on file Sexual Orientation Not on file documented as of this encounter Progress Notes * Lauren Foster MD - 07/11/2014 3:38 PM EST [id number],[facility] [place], [place]. Reason For Visit Prostate cancer History of Present Illness The patient is a 65-year-old man who's primary urologist is Dr. Morin. He was found to have one core Tami 6 prostate cancer comprising 5% of one [...] ultrasound-guided prostate biopsy at the same time. I do not have an exact size measurement on his prostate from the ultrasound. His past urologic history is also notable for having undergone a TUNA procedure. The patient has mild erectile dysfunction at baseline with an GLENN score of 18/25. He has moderate lower urinary tract symptoms consisting of 1-2 times nocturia and occasional decreased stream. 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 Review of Systems Review of systems for the 14 system review as documented in the intake sheet, reviewed with the patient, and scanned into the medical record is positive for acid reflux, frequent urination, difficult urination, rash. Vitals Laura Vitals Data Includes: Current Encounter [id number] 09:17AM Systolic 124 Diastolic 84 Heart Rate 72 BMI Calculated 23.75 BSA Calculated 1.84 Height 5 ft 8 in Weight 156 lb 11.2 oz Respiration 16 Pain Score 0 Allergy Status Reviewed Yes Safe at Home Yes Physical Exam PHYSICAL EXAM: GENERAL: He appears well. No distress. NEURO: Cranial nerves grossly intact. Normal gait. HEENT: sclera anicteric, oropharynx clear BACK: No CVA tenderness CHEST: Clear to auscultation bilaterally HEART: Tones are regular, without adventitious sounds ABDOMEN: Soft, nontender, nondistended without scars, masses, or hernias. BLADDER: Not palpable. GENITALIA: Normal uncircumcised phallus, testes and epididymis in scrotal location without masses or tenderness RECTAL EXAM: the prostate is smooth, symetrical, without nodules or induration. Normal sphincter tone. EXTREMITIES: without cyanosis, clubbing, or edema Results/Data Outside laboratory values on March 22, 2011 show BUN 17, creatinine 0.9, PSA 7.1 ng/mL. PSA was 2.7 in September 2008. Assessment Low risk prostate cancer Plan I framed the conversation around the [facility] pre-treatment nomogram for prostate cancer. I cautioned him about the limitations in applying nomograms to individual patients. His nomogram predicts the following for clinical T1c disease: 1. Organ confined disease: 90% 2. Extracapsular extension: 10% 3. Seminal vesicle invasion: 1% 4. Lymph node involvement: 1% I discussed active surveillance. He is clearly an excellent candidate for active surveillance if he so desired. I discussed the rationale for active surveillance being that not all prostate cancers that are diagnosed are destined to be deadly. I discussed currently available criteria to choose candidates for active surveillance including the following: PSA less than 10, Tami score less than or equal to 6, less than 3/12 cores positive for prostate cancer, less than 50% core involvement, PSA density less than 0.15 ng/mL. I explained that these criteria continued to evolve. A typical active surveillance strategy would include quarterly PSAs and rectal exams as well as annual prostate biopsies. This differs between practitioners and institutions. I discussed the pros and cons of active surveillance. I discussed the concept of Tami under grading and under staging as they relate to active surveillance. I discussed the current literature on the subject and its limitations. I then discussed radiation therapy for prostate cancer. I explained the difference between brachytherapy and intensity modulated radiation therapy. Brachytherapy would be appropriate for his low-risk disease so long as gland size from implantation from a technical standpoint. The use of concomitant hormone therapy as an adjunct to radiation therapy was explained, although not required in his situation unless cytoreduction is desired. I highlighted the approximately equal chance at cancer control between radiation and surgical removal of the prostate, albeit with very different side effect profiles. I also discussed options for salvage therapy following failure of either primary radiation therapy or primary surgical removal of the prostate. We then discussed robotic radical prostatectomy. I gave him expectations for cancer control, urinary continence, and sexual potency following robotic prostatectomy. We would perform a bilateral nerve sparing procedure. By nomogram predicted lymph node positivity, lymphadenectomy would not be required. Using anatomical diagrams as well as drawings, I explained the procedure to him in detail. For prostatectomy I emphasized surgeon experience as being more important than the global technique (i.e. open versus robotic), since the robot is in essence merely a surgical instrument. I explained that the well accepted benefits from robotic surgery are all very much in the short term, and include less blood loss, short hospital stay, and perhaps decreased pain. I discussed the time course for resumption of urinary control following prostatectomy and I carla him a graph in this regard. He understands that in some cases it can take up to 12 months to fully regain urinary control. I discussed risks of the procedure. Intraoperative risks include open conversion, adjacent organ injury in particular rectal injury, and bleeding. Postoperative risks include but are not limited to deep venous thrombosis, pulmonary embolism, heart attack, stroke, and . We discussed permanent bladder neck complications such as early urinary extravasation, and anastomotic disruption, bladder neck contracture requiring multiple procedures. When lymphadenectomy is performed, there is a further risk of lymphocele, which may become secondarily infected. In his particular situation, I explained how a TUNA procedure can make prostatectomy more difficult because of the introduction of scar tissue in particular at the bladder neck. He also still has yet to me with radiation oncology and has an upcoming appointment with them. He clearly seemed to be in the decision-making and information gathering stage and still has a lot of thinking to do about this very difficult medical decision. I certainly would be happy to perform radical prostatectomy for him if this was his ultimate decision. I will wait to hear from him. Total time with the patient, greater than 50% in counselin minutes. Signatures Electronically signed by : LAUREN FOSTER MD; Jun 16 2011 1:07PM documented in this encounter Miscellaneous Notes * Letter - Lauren Foster MD - 07/11/2014 3:38 PM EST [id number],[place] Reason For Visit Prostate cancer History of Present Illness The patient is a 65-year-old man who's primary urologist is Dr. Morin. He was found to have one core Tami 6 prostate cancer comprising 5% of one [...] ultrasound-guided prostate biopsy at the same time. I do not have an exact size measurement on his prostate from the ultrasound. His past urologic history is also notable for having undergone a TUNA procedure. The patient has mild erectile dysfunction at baseline with an GLENN score of 18/25. He has moderate lower urinary tract symptoms consisting of 1-2 times nocturia and occasional decreased stream. Allergies Sulfa Drugs Darins Laura Vitals Data Includes: Current Encounter [id number] 09:17AM Systolic 124 Diastolic 84 Heart Rate 72 BMI Calculated 23.75 BSA Calculated 1.84 Height 5 ft 8 in Weight 156 lb 11.2 oz Respiration 16 Pain Score 0 Allergy Status Reviewed Yes Safe at Home Yes Physical Exam PHYSICAL EXAM: GENERAL: He appears well. No distress. NEURO: Cranial nerves grossly intact. Normal gait. HEENT: sclera anicteric, oropharynx clear BACK: No CVA tenderness CHEST: Clear to auscultation bilaterally HEART: Tones are regular, without adventitious sounds ABDOMEN: Soft, nontender, nondistended without scars, masses, or hernias. BLADDER: Not palpable. GENITALIA: Normal uncircumcised phallus, testes and epididymis in scrotal location without masses or tenderness RECTAL EXAM: the prostate is smooth, symetrical, without nodules or induration. Normal sphincter tone. EXTREMITIES: without cyanosis, clubbing, or edema Assessment Low risk prostate cancer Plan I framed the conversation around the [facility] pre-treatment nomogram for prostate cancer. I cautioned him about the limitations in applying nomograms to individual patients. His nomogram predicts the following for clinical T1c disease: 1. Organ confined disease: 90% 2. Extracapsular extension: 10% 3. Seminal vesicle invasion: 1% 4. Lymph node involvement: 1% I discussed active surveillance. He is clearly an excellent candidate for active surveillance if he so desired. I discussed the rationale for active surveillance being that not all prostate cancers that are diagnosed are destined to be deadly. I discussed currently available criteria to choose candidates for active surveillance including the following: PSA less than 10, [place] score less than or equal to 6, less than 3/12 cores positive for prostate cancer, less than 50% core involvement, PSA density less than 0.15 ng/mL. I explained that these criteria continued to evolve. A typical active surveillance strategy would include quarterly PSAs and rectal exams as well as annual prostate biopsies. This differs between practitioners and institutions. I discussed the pros and cons of active surveillance. I discussed the concept of [place] under grading and under staging as they relate to active surveillance. I discussed the current literature on the subject and its limitations. I then discussed radiation therapy for prostate cancer. I explained the difference between brachytherapy and intensity modulated radiation therapy. Brachytherapy would be appropriate for his low-risk disease so long as gland size from implantation from a technical standpoint. The use of concomitant hormone therapy as an adjunct to radiation therapy was explained, although not required in his situation unless cytoreduction is desired. I highlighted the approximately equal chance at cancer control between radiation and surgical removal of the prostate, albeit with very different side effect profiles. I also discussed options for salvage therapy following failure of either primary radiation therapy or primary surgical removal of the prostate. We then discussed robotic radical prostatectomy. I gave him expectations for cancer control, urinary continence, and sexual potency following robotic prostatectomy. We would perform a bilateral nerve sparing procedure. By nomogram predicted lymph node positivity, lymphadenectomy would not be required. Using anatomical diagrams as well as drawings, I explained the procedure to him in detail. For prostatectomy I emphasized surgeon experience as being more important than the global technique (i.e. open versus robotic), since the robot is in essence merely a surgical instrument. I explained that the well accepted benefits from robotic surgery are all very much in the short term, and include less blood loss, short hospital stay, and perhaps decreased pain. I discussed the time course for resumption of urinary control following prostatectomy and I carla him a graph in this regard. He understands that in some cases it can take up to 12 months to fully regain urinary control. I discussed risks of the procedure. Intraoperative risks include open conversion, adjacent organ injury in particular rectal injury, and bleeding. Postoperative risks include but are not limited to deep venous thrombosis, pulmonary embolism, heart attack, stroke, and . We discussed permanent bladder neck complications such as early urinary extravasation, and anastomotic disruption, bladder neck contracture requiring multiple procedures. When lymphadenectomy is performed, there is a further risk of lymphocele, which may become secondarily infected. In his particular situation, I explained how a TUNA procedure can make prostatectomy more difficult because of the introduction of scar tissue in particular at the bladder neck. He also still has yet to me with radiation oncology and has an upcoming appointment with them. He clearly seemed to be in the decision-making and information gathering stage and still has a lot of thinking to do about this very difficult medical decision. I certainly would be happy to perform radical prostatectomy for him if this was his ultimate decision. I will wait to hear from him. Total time with the patient, greater than 50% in counselin minutes. Signatures Electronically signed by : LAUREN FOSTER MD; Jun 16 2011 1:07PM documented in this encounter Plan of Treatment Not on file documented as of this encounter Procedures Procedure Name Priority Date/Time Associated Diagnosis Comments TISSUE EXAM Routine 06/16/2011 2:00 PM EST Malignant neoplasm of prostate documented in this encounter Results * Pathology Tissue Exam (06/16/2011 2:00 PM EST) 06/16/2011 2:00 PM EST Narrative CONVERSION FROM [facility] - 06/20/2011 12:00 PM EST SOURCE OF SPECIMEN PROSTATE BIOPSY (11:S4954; 05/17/11)- FINAL DIAGNOSIS: PROSTATE BIOPSY (11:S4954; 05/17/11)- ADENOCARCINOMA OF THE PROSTATE, TAMI SCORE 3+3=6/10, PRESENT IN BIOPSY LABELED LEFT MID LATERAL, INVOLVING 5% OF TISSUE CORE. FOCAL HIGH GRADE PIN PRESENT IN BIOPSY LABELED RIGHT BASE MEDIAL. (BST) SIGNATURE RICHARD OROSCO M.D. (CASE SIGNED 06 20 2011) CASE CLINICAL INFORMATION PLEASE REVIEW OUTSIDE SLIDES FROM [facility], [place], [place]. CLINICAL HISTORY: ELEVATED PSA. GROSS DESCRIPTION RECEIVED FROM [facility], [place], [place] ARE 40 GLASS SLIDES LABELED 11:S4954 AND SUBLABELED (A-I) X3; (J X5); (K X5); (L X3) CORRESPONDING TO PROSTATE NEEDLE BIOPSIES: RIGHT BASE MEDIAL (A X3); RIGHT BASE LATERAL (B X3); RIGHT MID MEDIAL (C X3); RIGHT MID LATERAL (D X3); RIGHT APEX MEDIAL (E X3); RIGHT APEX LATERAL (F X3); LEFT BASE MEDIAL (G X3); LEFT BASE LATERAL (H X3); LEFT MID MEDIAL (I X3); LEFT MID LATERAL (J X5); LEFT APEX MEDIAL (K X5); LEFT APEX LATERAL (L X3); OBTAINED ON 05/17/2011 DESCRIBED IN THE ACCOMPANYING PATHOLOGY REPORT. /[facility] LAUREN FOSTER/#/2780 us Lauren Foster MD PATHOLOGY/CYTOLOGY ORDERABLES Fi nal Result CONVERSION FROM [facility] documented in this encounter Visit Diagnoses Diagnosis Malignant neoplasm of prostate (CMS-HCC) Malignant neoplasm of prostate documented in this encounter Care Teams Parts Room Clerk Relationship Specialty Start Date End Date Juancho Gilliam MD [address] [place] [address] PCP - General 04/27/14 documented as of this encounter
--- OUTSIDE RECORDS SUMMARY | 2025-04-23 09:24 | XMS_ITS | Encounter Summary ---
Author Organization [facility] Address [address] [place] [address] Phone Care Team Providers Care Sweat Band Sewer Name Role Phone Peggy Eastman MD Primary Care Provider [phone] Leandro Denis MD Unavailable [phone] Jeffrey Tran MD Unavailable Jude Walsh DO Primary Care Provider [phone] Encounter Details Date Type Department Care Team (Late st Contact Info) Description 01/14/[address] [facility] [address] [place] [address] Social History Tobacco Use Types Packs/Day Years [...] EST Blood Draw Laboratory Services, [facility] [address] [place] [address], [address] [place] [address] Juancho Gilliam MD [address] [place] [id number] [email or web address] 08/05/2025 12:00 PM EST Office Visit [facility], Division of Hematologic Oncology, [facility] [address], [address] [place] [address] Juancho Gilliam MD [address] [place] [address] [email or web address] documented as of this encounter Visit Diagnoses Not on filedocumented in this encounter Care Teams Sweat Band Sewer Relationship Specialty Start Date End Date Peggy Eastman MD [address] [address] PCP - General 10/23/14 02/11/25 Jude Walsh DO [address] [place] [address] PCP - General Family Medicine 02/12/25 Leandro Denis MD [address] [address] [email or web address] [email or web address] 01/27/15 Jeffrey Tran MD [address] [address] Medical Physics Professor Endocrinology 03/20/18 documented as of this encounter Additional Source Comments The information contained in this document represents components of the legal health record. It is not the complete legal health record.[facility]
--- OUTSIDE RECORDS SUMMARY | 2025-04-23 09:24 | XMS_ITS | Patient Health Record ---
Author Organization [facility] Address [address] [place], [place] [address] Care Team Providers Care Clinical Informatics Strategist Name Role Phone Peggy Eastman Primary Care Provider Johnnie Moreira Unavailable [phone] Allergies Allergen (clinical drug ingredient) Drug/Non Drug Allergy documented on EMR Reaction Allergy Type Onset Date Status sulfa rash Drug Allergy Active Reason For Referral No Information Medications Medication SIG (Take, Route, Frequency, Duration) Notes Start Date End Date Status Aspirin 81 MG Tablet Chewable 1 tablet Orally Once a day; Duration: 30 day(s) Active Velcade 3.5 MG Solution Reconstituted as directed Injection once a week Active Darzalex 100 MG/5ML Solution as directed Intravenous Acti ve Atovaquone 750 MG/5ML Suspension 5 ml with food Orally once a week Active Bactrim 400-80 MG Tablet 1 tablet Orally Once a day; Duration: 30 day(s) 02/16/2020 Active Dex PC once a week Active Vitamin D3 25 MCG (1000 UT) Capsule 1 capsule Orally Once a day; Duration: 30 day(s) Active Sulfamethoxazole-Trimethopr im 200-40 MG/5ML Suspension 10 ml or as directed by MD Orally Twice a day; Duration: 10 day(s) 02/03/2020 Active Synthroid 137 MCG Tablet 1 tablet in the morning on an empty stomach Orally Once a day; Duration: 30 day(s) Active Mylan Generic Epinephrine Auto-Injector 0.3 MG / 0.3 ML Injection As Directed Active Jessica Allergy 180 MG Tablet 1 tablet Orally Once a day Active valACYclovir HCl 500 MG Tablet 1 tablet Orally Once a day; Duration: 10 day(s) Active Tamsulosin HCl 0.4 MG Capsule 1 capsule Orally Once a day; Duration: 30 day(s) Active Social History Tobacco Use: Social History Observation Description Date Details (start date - stop date) Never Smoker NA - NA Social History Social History Social Info Question Answer Notes Tobacco Are you a: never smoker Additional Details Category Social Info Options Details Social History Occupation: Retired - [employer] Alcohol: Rare Marital status Single Children None Siblings Brother ( d) Problems Problem Type SNOMED Code ICD Code Onset Dates Problem Status W/U Status Risk Notes Problem Chronic urticaria (18072786) Chronic urticaria (L50.8) Active confirmed Problem 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) Active confirmed Plan Of Treatment No Information Insurance Providers Payer Name Payer Address Payer Phone Subscriber Number Group Number Insured Name Patient Relationship to Insured Coverage Start Date Coverage End Date [employer] [address] [place] [address] [id number] Leandro De La Vega Self - [...]
--- OUTSIDE RECORDS SUMMARY | 2025-04-23 09:24 | XMS_ITS | Patient Health Record ---
Author Organization [facility] Address [address] [place] [address] Care Team Providers Care Clinical Nurse Leader Name Role Phone Peggy Eastman MD Primary Care Provider Sebastian Ortega Jr Unavailable Allergies Allergen (clinical drug ingredient) Drug/Non Drug Allergy documented on EMR Reaction Allergy Type Onset Date Status Sulfa Unknown Drug Allergy Active Reason For Referral No Information Medications Medication SIG (Take, Route, Frequency, Duration) Notes Start Date End Date Status Sulfamethoxazole-Trimethopr im 800-160 MG Oral; Duration: 90 Active Tamsulosin HCl 0.4 MG Oral; Duration: 90 Active Synthroid 150 MCG 1 tablet in the morn ing on an empty stomach Orally Once a day Active Jessica 180 MG 1 tablet Orally Once a day Active Diphenoxylate-Atropine 2.5-0.025 MG TAKE 1 TABLET BY MOUTH FOUR TIMES A DAY NEEDED; Duration: 30 07/31/2022 Active Velcade 3.5 MG as directed Injection Active MiraLax (colon prep) 17 GM/SCOOP mixed with Gatorade or Crystal Light Orally begin at 5:00 p.m. the day before the procedure; Duration: 1 day 06/01/2021 Active Darzalex 100 MG/5ML as directed Intravenous Active D3-1000 25 MCG (1000 UT) Oral; Duration: 90 Active valACYclovir HCl 500 MG Oral; Duration: 90 Active Immunizations Vaccine Route Administration Date Status Comme nts Influenza Unknown 06/01/2021 Refused Problems Problem Type SNOMED Code ICD Code Onset Dates Problem Status W/U Status Risk Notes Problem Dysphagia (44338054) Other dysphagia (R13.19) Active confirmed Problem Duodenitis (70183617) Duodenitis (K29.80) Active confirmed Problem Gastritis (6320644) Gastritis (K29.70) Active confirmed Problem Diarrhea (72150697) Diarrhea, unspecified type (R19.7) Active confirmed Plan Of Treatment Future Test Test Name Order Date UPPER GI ENDOSCOPY 05/01/2012 COLONOSCOPY 05/01/2012 UPPER GI ENDOSCOPY 06/01/2021 COLONOSCOPY 06/01/2021 Insurance Providers Payer Name Payer Address Payer Phone Subscriber Number Group Number Insured Name Patient Relationship to Insured Coverage Start Date Coverage End Date [facility] [address] [place] [id number] ROEL BLEVINS Self - patient is the insured Medical (General) History Medical History History ICD Code Diarrhea elevated cholesterol multiple myeloma Osteopenia Graves' disease status post radioactive iodine Paroxysmal atrial fibrillation BPH Surgical History Surgery Date(Month/Year) arthroscopy-left knee Stem cell transplant, autologous
--- OUTSIDE RECORDS SUMMARY | 2025-04-23 09:24 | XMS_ITS | Encounter Summary ---
Author Organization [facility] Address [address] [place] [address] Care Team Providers Care Beet Worker Name Role Phone Jude Walsh DO Primary Care Provider + Reason for Visit * Reason Onset Date Comments Med Refill 04/20/2025 Encounter Details Date Type Department Care Team (Late st Contact Info) Description 04/20/2025 Refill [facility] [address] [place] [id number] Sandy Christina, MAGALY Social History Tobacco Use Types Packs/Day Years [...] money to get more. Never true 01/30/2025 [facility] Utilities Answer Date Recorded In the [...] encounter Miscellaneous Notes * Telephone Encounter - Sandy Christina RN - 04/20/2025 2:23 PM EST He's always had an Rx for this. He is willing to buy OTC but old PCP always did this. He does not know why but might be due to cost. documented in this encounter Plan of Treatment Upcoming Encounters Date Type Department Care Team (Late st Contact Info) Description 08/10/2025 9:30 AM EST Follow-Up [facility] [address] [place] [address] Jude Walsh DO [address] [place] [address] 09/09/2025 10:30 AM EDT Follow-Up [address] Cardiology [address] [place] [id number] Adolfo Sol MD [address] [id number] documented as of this encounter Visit Diagnoses Not on filedocumented in this encounter Care Teams Beet Worker Relationship Specialty Start Date End Date Jude Walsh DO [address] [place] [address] PCP - General Family Medicine 11/26/24 documented as of this encounter
== END 2025-04-23 10:09 | disposition home or self-care (01) ==
LOC: HO.HUSH 08:47
PROVIDERS: PCP Internal Medicine; Visit Provider Urology
DX: C61 Malignant neoplasm of prostate (principal); R39.12 Poor urinary stream; R35.1 Nocturia
CPT/HCPCS: 99213

== ENCOUNTER → 2025-04-23 08:46 | Outpatient (BNVA) | payer MEDICARE, SELFPAY | PROVIDERS: PCP Internal Medicine; Visit Provider Urology | DX: R39.12 Poor urinary stream (principal); R35.1 Nocturia; C61 Malignant neoplasm of prostate | CPT/HCPCS: 51798; 99212 ==